=== PATIENT | female | born 1940 | race Caucasian/White ===

== ENCOUNTER 2018-11-24 14:36 | Inpatient (IN) | payer MEDICARE ==
--- NOTE | 2018-10-25 07:16 | NUR ---
REPORTED OFF TO DEXTER, PT STABLE I ROOM, DENIES PAIN AND BLEEDING, STATES SHE WANTS TO EAT AND DRINK.
[~2018-11-24] VITALS: Ht 157.5 cm; Wt 43.6 kg
--- OUTSIDE RECORDS SUMMARY | 2018-11-24 14:38 | XMS REPORT ---
Author Author [facility] Address Unknown Phone Unavailable Care Team Providers Care Commodity Supervisor Name Role Phone Unavailable Unavailable Payers Payer Name Policy Type Policy Number Effective Date Expiration Date Problems This patient has no known problems. Allergies, Adverse Reactions, Alerts Allergy Name Allergy Type Status Severity Reaction(s) Onset Date Inactive Date Treating Clinician Comments No Known Allergies DA Active U 2017-12-29 00:00:00 Medications This patient has no known medications.
[2018-11-24 15:39] LABS: BASOPHILS # (AUTO) 0.1 (0.0-0.1); BASOPHILS % 0.7 % (0.0-1.0); EOSINOPHILS # (AUTO) 0.1 (0.0-0.4); EOSINOPHILS % 1.1 % (0.0-6.0); HEMATOCRIT 24.8 % (34.2-44.1); HEMOGLOBIN 7.5 g/dL (12.0-16.0); LYMPHOCYTES # (AUTO) 1.4 (1.0-3.2); LYMPHOCYTES % 18.5 % (18.0-39.1); MEAN CORPUSCULAR HEMOGLOBIN 29.1 pg (28-32); MEAN CORPUSCULAR HGB CONC 30.2 g/dL (31-35); MEAN CORPUSCULAR VOLUME 96.1 fL (81-99); MONOCYTES # (AUTO) 0.5 (0.2-0.8); NEUTROPHILS # (AUTO) 5.4 (2.1-6.9); NEUTROPHILS % 72.4 % (38.7-80.0); PLATELET COUNT 420 x10e3/uL (140-360); RED BLOOD COUNT 2.58 x10e6/uL (3.6-5.1); RED CELL DISTRIBUTION WIDTH 14.6 % (11.7-14.4)
[2018-11-24 16:01] LABS: ALBUMIN 2.9 g/dL (3.5-5.0); ALBUMIN/GLOBULIN RATIO 1.1 (0.8-2.0); ANION GAP 14.3 mmol/L (8-16); CALCIUM 8.4 mg/dL (8.4-10.2); CREATININE, SERUM 2.17 mg/dL (0.57-1.11); POTASSIUM 4.3 mmol/L (3.5-5.1)
[2018-11-24] MEDS ORDERED: LOSARTAN POTASS50 MG PO (16:12)
[2018-11-24] MEDS ORDERED: PANTOPRAZOLE SO40 MG PO (16:12)
[2018-11-24] MEDS ORDERED: XARELTO15 MG PO (16:12)
[2018-11-24] MEDS ORDERED: METOPROLOL TART50 MG PO (16:12)
[2018-11-24] MEDS ORDERED: TRIAMTERENE-HCTZ1 EA PO (16:12)
[2018-11-24] MEDS ORDERED: MIRTAZAPINE15 MG PO (16:12)
[2018-11-24 16:27] LABS: MAGNESIUM 1.9 MG/DL (1.3-2.1)
[2018-11-24 16:32] LABS: INR 0.92; PROTHROMBIN TIME 13.2 seconds (11.9-14.5)
[2018-11-24 16:33] LABS: PARTIAL THROMBOPLASTIN TIME 24.4 seconds (23.8-35.5)
[2018-11-24 16:35] LABS: CREATINE KINASE MB 2.3 ng/mL (0-5.0)
--- NOTE | 2018-11-24 16:36 | Diagnostic Imaging Report ---
EXAMINATION: CHEST SINGLE (PORTABLE) INDICATION: Fatigue. ^FATIGUE ^[id number] ^[id number] COMPARISON: None FINDINGS: TUBES and LINES: None. LUNGS: Lungs are well inflated. Likely mild scarring/atelectasis at the left lung base. There is no evidence of pneumonia or pulmonary edema. PLEURA: Likely small left pleural effusion. HEART AND MEDIASTINUM: Cardiomegaly. BONES AND SOFT TISSUES: No acute osseous lesion. Soft tissues are unremarkable. UPPER ABDOMEN: No free air under the diaphragm. IMPRESSION: Cardiomegaly with likely small left pleural effusion and mild scarring/atelectasis at the left lung base. Signed by: Dr. Harvey Ochoa M.D. on 11/24/2018 4:32 PM
[2018-11-24] MEDS ORDERED: SODIUM CHLORIDE 0.9% 250ML 250 ML IV ONE (16:45)
--- NOTE | 2018-11-24 17:41 | NUR ---
started first unit PRBC.
[2018-11-24] MEDS ORDERED: IPRATROPIUM BROMIDE 0.02% 2.5 ML NEB NEB PRN (18:15)
[2018-11-24] MEDS ORDERED: PANTOPRAZOLE 40 MG 10ML VIAL IV ONE (18:15)
[2018-11-24] MEDS ORDERED: LEVALBUTEROL HCL SOLN NEBU 0.63 MG/3 ML NEB INH PRN (18:15)
[2018-11-24] MEDS ORDERED: SODIUM CHLORIDE 0.9% 1000ML 1,000 ML IV ONE (18:15)
--- NOTE | 2018-11-24 18:23 | NUR ---
DR. WING IN ED TO SEE PATIENT
--- NOTE | 2018-11-24 19:00 | NUR ---
RECEIVED REPORT FROM LISA WAGNER LVN. PT AWAKE ALERT SKIN W/D RESP NONLAB NAD NOTED. TOLERATING TRANSFUSION WELL
--- NOTE | 2018-11-24 20:04 | NUR ---
1ST UNIT PRBC INFUSED. TOLERATED WELL, AWAKE ALERT SKIN W/D RESP NONLAB. NAD NOTED.
[2018-11-24] MEDS: FUROSEMIDE INJ 10 MG/ML 2 ML VIAL IV PRN (20:18)
[2018-11-24 20:24] LABS: BILIRUBIN,URINE NEGATIVE (NEGATIVE); CLARITY,URINE SL CLOUDY (CLEAR); COLOR,URINE YELLOW (YELLOW); KETONES,URINE NEGATIVE (NEGATIVE); LEUKOCYTE ESTERASE ,URINE NEGATIVE (NEGATIVE); NITRITE,URINE NEGATIVE (NEGATIVE); PROTEIN,URINE DIPSTICK TRACE (NEGATIVE); URINE UROBILINOGEN 0.2 mg/dL (0.2 - 1)
[2018-11-24 20:35] LABS: BACTERIA,URINE MANY /HPF; EPITHELIAL CELLS,URINE MANY /LPF; TRANSITIONAL EPI CELLS,URINE MODERATE
[2018-11-24] MEDS: NIFEDIPINE CR 30 MG TAB PO SCH (20:37)
[2018-11-24 20:47] LABS: CREATININE,URINE RANDOM 93.55 mg/dL (47-110); TOTAL PROTEIN, URINE 27.4 mg/dL (1-14)
--- NOTE | 2018-11-24 20:48 | Consultation ---
DATE OF CONSULTATION: November 24, 2018 REASON FOR CONSULTATION: Acute kidney injury. HISTORY OF PRESENT ILLNESS: A 77-year-old female who was on Xarelto for atrial fibrillation, probable coronary artery disease, followed by Dr. Boateng, came in with bleeding per rectum. Found to have anemia with a hemoglobin 7.5, currently receiving packed RBC transfusion. Currently lying supine, in no apparent distress. Patient is a thin built lady with very poor muscle mass, but delightfully comfortable. No apparent distress. LABS: Show sodium 137, potassium 4.3, bicarbonate 21, creatinine 2.17. Patient denies prior history of any kidney insufficiency or kidney stone disease. ALLERGIES: SHE DENIES ANY DRUG ALLERGIES. PAST MEDICAL HISTORY: Hypertension, atrial fibrillation. MEDICATIONS: Currently received normal saline bolus. On albuterol, ipratropium. He also on metoprolol 50 mg p.o. daily, pantoprazole IV. Receiving packed RBC transfusion. SOCIAL HISTORY: Does not smoke or drink. FAMILY HISTORY: Significant for hypertension. PHYSICAL EXAMINATION GENERAL: Awake, alert, lying supine, no apparent distress. VITALS: Blood pressure 173/83, pulse is 74, afebrile. HEAD AND NECK: Cornea clear. Mucosa moist. Neck veins flat. LUNGS: Relatively clear. No rales or rhonchi. HEART: S1, S2 audible. ABDOMEN: Otherwise soft and nontender. No apparent visceromegaly. EXTREMITIES: Lower extremity examination shows no edema. IMPRESSION AND PLAN 1. Acute kidney failure, etiology multifactorial. 2. Underlying atrial fibrillation. 3. Gastrointestinal bleed. 4. Anemia. GI to be consulted. Receiving packed RBC transfusion. No evidence of fluid overload. We will obtain urinalysis, spot urine protein-creatinine ratio, kidney ultrasound, urine electrolytes. Calculate fraction excretion of sodium. Serum uric acid. Continue IV normal saline once packed RBC is finished. Strict I's and O's. Job#: [id number] RTKarla
--- NOTE | 2018-11-24 22:05 | NUR ---
attempted to call report without success
--- NOTE | 2018-11-24 22:17 | NUR ---
attempted to call report without success
[2018-11-24 23:40] VITALS: BP 170/96
[2018-11-24 23:45] VITALS: BP 170/96
--- NOTE | 2018-11-24 23:45 | NUR ---
RECEIVED PT FROM ER/ KEVIN RN GAVE NURSE REPORT , PT AAOX3, BREATHING EVEN AND UNLABORED, ON ROOM AIR, WITH 2ND UNIT BLOOD TRANSFUSION IN PROGRESS.
[2018-11-25] MEDS: FUROSEMIDE INJ 10 MG/ML 2 ML VIAL IV PRN ×2 (01:50→07:12)
[2018-11-25] MEDS: SODIUM CHLORIDE 0.9% 1000ML 1,000 ML IV SCH ×3 (04:45→21:22)
[2018-11-25 05:26] LABS: BASOPHILS % 0.6 % (0.0-1.0); EOSINOPHILS # (AUTO) 0.2 (0.0-0.4); EOSINOPHILS % 2.6 % (0.0-6.0); HEMATOCRIT 34.3 % (34.2-44.1); HEMOGLOBIN 11.1 g/dL (12.0-16.0); LYMPHOCYTES # (AUTO) 1.6 (1.0-3.2); LYMPHOCYTES % 23.7 % (18.0-39.1); MEAN CORPUSCULAR HEMOGLOBIN 27.9 pg (28-32); MEAN CORPUSCULAR HGB CONC 32.4 g/dL (31-35); MEAN CORPUSCULAR VOLUME 86.2 fL (81-99); MONOCYTES # (AUTO) 0.7 (0.2-0.8); MONOCYTES % 9.9 % (4.4-11.3); NEUTROPHILS # (AUTO) 4.1 (2.1-6.9); NEUTROPHILS % 62.9 % (38.7-80.0); PLATELET COUNT 337 x10e3/uL (140-360); RED BLOOD COUNT 3.98 x10e6/uL (3.6-5.1); RED CELL DISTRIBUTION WIDTH 16.5 % (11.7-14.4)
[2018-11-25 05:45] LABS: ALBUMIN 3.1 g/dL (3.5-5.0); ALBUMIN/GLOBULIN RATIO 1.1 (0.8-2.0); CALCIUM 8.7 mg/dL (8.4-10.2); CREATININE, SERUM 2.07 mg/dL (0.57-1.11)
[2018-11-25 06:05] LABS: CREATINE KINASE MB 3.2 ng/mL (0-5.0)
[2018-11-25 07:15] VITALS: BP 160/83
[2018-11-25] MEDS: METOPROLOL TARTRATE 50 MG TAB PO SCH ×2 (08:36→17:34)
[2018-11-25] MEDS: PANTOPRAZOLE 40 MG 10ML VIAL IV SCH ×2 (08:36→17:33)
--- NOTE | 2018-11-25 08:36 | Progress Note ---
DATE: November 25, 2018 SUBJECTIVE: Getting hungry. Thinks the bleeding is better. OBJECTIVE VITAL SIGNS: Temperature 98.4, pulse 78, blood pressure 160/83. CHEST: Clear. EXTREMITIES: No edema. SKIN: Decreased turgor. LABS: Hemoglobin is up to 11.1. Chemistries show relatively stable creatinine of 2.07, serum CO2 of 22, she does not think that CKD has been mentioned in her past by Dr. Duran. The UA was showing evidence of UTI with proteinuria about 300 mg or so. Ultrasound is pending. Otherwise, no casts were reported. ASSESSMENT 1. Probably chronic kidney disease, stage 3 to 4 and volume depletion. 2. If there is any acute injury, we need to check the old records to see what her baseline was, although I suspect she is quite close to it. 3. Suspected cause of chronic kidney disease is hypertension and nephrosclerosis. PLAN: Continue current medications. Cut down IV fluids to 50 mL an hour. Increase the metoprolol to 50 mg twice a day. We will follow along. Job#: [id number] GENE
[2018-11-25] MEDS ORDERED: METOPROLOL TARTRATE 50 MG TAB PO SCH (09:00)
[2018-11-25 10:01] LABS: BASOPHILS # (AUTO) 0.1 (0.0-0.1); BASOPHILS % 0.7 % (0.0-1.0); EOSINOPHILS # (AUTO) 0.1 (0.0-0.4); EOSINOPHILS % 1.6 % (0.0-6.0); HEMATOCRIT 34.8 % (34.2-44.1); HEMOGLOBIN 11.4 g/dL (12.0-16.0); LYMPHOCYTES # (AUTO) 1.1 (1.0-3.2); MEAN CORPUSCULAR HGB CONC 32.8 g/dL (31-35); MEAN CORPUSCULAR VOLUME 85.5 fL (81-99); MONOCYTES # (AUTO) 0.7 (0.2-0.8); MONOCYTES % 9.7 % (4.4-11.3); NEUTROPHILS # (AUTO) 4.7 (2.1-6.9); NEUTROPHILS % 70.6 % (38.7-80.0); PLATELET COUNT 347 x10e3/uL (140-360); RED BLOOD COUNT 4.07 x10e6/uL (3.6-5.1); RED CELL DISTRIBUTION WIDTH 16.7 % (11.7-14.4)
[2018-11-25 10:21] LABS: CREATINE KINASE MB 2.9 ng/mL (0-5.0)
--- NOTE | 2018-11-25 11:28 | Consultation ---
DATE OF CONSULTATION: November 25, 2018 HPI: This is a 77-year-old who has a history of renal disease, history of atrial fibrillation, history of coronary artery disease, presented to the hospital because of problems with rectal bleeding that happened about a week or so ago. The patient was on Xarelto as he apparently bumped the Xarelto a week ago and the bleeding resolved. She is currently comfortable. On admission, her hemoglobin was 7.5 and she received 2 unit of bright red blood cells and it has been up to 11. She also has an elevated troponin of 1.472. MEDICAL PROBLEMS: Significant for history of renal disease, and also history of atrial fibrillation, and history of hypertension. ALLERGIES: NONE. SOCIAL HISTORY: No alcohol use. FAMILY HISTORY: Noncontributory. REVIEW OF SYSTEMS: At this point, she denies any chest pain. Denies any shortness of breath. Denies any dysphagia or odynophagia. Denies any dysuria, hematuria, or any kind of syncopal episode. She apparently had colonoscopy in April, which was supposedly "normal." PHYSICAL EXAMINATION GENERAL: Awake, alert, appears to be stable, not in acute distress at this point. VITAL SIGNS: Afebrile currently. HEAD, EYES, EARS, NOSE, AND THROAT: Normocephalic and atraumatic. Sclerae are anicteric. NECK: Supple. HEART: Sounds regular. LUNGS: Clear. ABDOMEN: Soft. There is no distention at this point. It is nontender. EXTREMITIES: No cyanosis. No clubbing. LAB VALUES: This morning BUN of 31, creatinine of 2.07, and troponin down to 0.720. Hemoglobin is up to 11.1 after blood transfusions. PT/INR is normal. IMPRESSION 1. Gastrointestinal bleed, painless. Suspect possible diverticular bleeding. At this point, she is not bleeding any more. 2. History of atrial fibrillation. 3. History of hypertension. 4. History of renal insufficiency. RECOMMENDATIONS: Continue current care at this point. Follow up labs and transfuse as needed. Cardiac evaluations. Job#: [id number] TESHA cc:DR. EWA ZAFAR
[2018-11-25 12:20] VITALS: BP 115/81
--- NOTE | 2018-11-25 14:10 | NUR ---
Nutrition Intervention Note RD Recommendation(s) for Physician: Consider a regular diet to promote PO intake Plan of Care: RD following, monitoring for tolerance and adequacy Nutrition reason for involvement: MD Consult RD Assessment Initial encounter with patient. Pt states that she had a UBW of 120# and has been losing wt over the last 4-5 years due to a poor appetite intake. Loss of lean body mass, loss of subcutaneous fat, prominent clavicle, hollow orbitals, temporal wasting, no change of functional status, pt is dentate and denies any difficulty chewing or swallowing. Pt is willing to take strawberry Ensure Enlive Principal Problems/Diagnoses: anemia, atrial fibrillation, GIB PMH: CKD stage 3-4, HTN IVF: NS at 50ml/h GI: Denies N,V,D Skin: Intact Labs: (11/25/2018) lab results reviewed Meds: (11/25/2018) MAR reviewed 1090 - 1309 kcals at 25-30 kcals/kg/bw 43-65 at 1-1.5 g/kg/bw fluid needs per fluid status Malnutrition Evaluation (11/25/2018) The patient meets criteria for unspecified SEVERE protein-calorie malnutrition. Energy intake: <75% of estimated energy requirements for >3 months Weight loss: >10% in 6 months (Chronic) Fat loss: Severe Muscle loss: Severe Supporting Evidence: Fluid accumulation:none Functional Status: no changes Diet Education Needs Assessment: Diet education not indicated. Ht:62 Wt:96.06lbs BMI:17.6kg/m2 IBW:110lbs Nutrition Prescription (Diet Order):Renal Food Allergies: no known food allergies. Diet Adequacy: Meeting calorie needs, Meeting protein needs, Meeting fluid needs Tolerance: Tolerating PO Nutrition Care Level: Moderate Nutrition Diagnosis: Malnutrition related to chronic illness as evidenced by a BMI of 17.6 Goal:Patient will meet 75-100% of estimated needs by follow up Progress: Progressing Interventions: General healthful diet, Commercial beverage Monitoring/Evaluation: Total energy intake, Total protein intake, IVF, Liquid supplement, Weight change. Edson Momin RD, LD, CNSC
--- NOTE | 2018-11-25 14:39 | Diagnostic Imaging Report ---
EXAM: Renal Ultrasound INDICATION: ABIEL. COMPARISON: None TECHNIQUE: Transverse and longitudinal images of the kidneys and bladder were obtained. FINDINGS: Right Kidney: Length: Measures 7.6 x 3.5 x 3.7 cm Appearance: Normal echogenicity. Collecting system: No hydronephrosis Stones: None Cyst/Mass: None Left Kidney: Length: Measures 8.0 x 4.5 x 3.4 cm Appearance: Normal echogenicity. Collecting system: No hydronephrosis Stones: None Cyst/Mass: No evidence of solid mass. A simple appearing anechoic cyst is noted in the inferior pole measuring up to 1.7 cm. Bladder: Unremarkable in appearance. Bilateral ureteral jets are noted. IMPRESSION: No acute sonographic abnormality. No evidence of hydronephrosis. Simple appearing left lower pole renal cyst. Signed by: Dr. Magali Kelly MD on 11/25/2018 2:36 PM
--- NOTE | 2018-11-25 15:45 | Consultation ---
DATE OF CONSULTATION: November 25, 2018 CARDIOLOGY CONSULTATION ATTENDING PHYSICIAN: Dr. Mulugeta Duran. Thank you so much for asking us to see this nice lady again in consultation. Ms. Lambert is a complex and elderly 77-year-old woman who is sent to the emergency room from Dr. Duran's office with a complaint of bright red blood per rectum. HISTORY OF PRESENT ILLNESS: Patient reports that several days ago, she noted some bright red blood per rectum and was instructed by Dr. Duran to stop her anticoagulant, Xarelto and head to the emergency room, which she did not do so because she found the hospital was full and returned later. PAST MEDICAL HISTORY: Complex with chronic atrial fibrillation. She has also hypertension, COPD, chronic mild renal insufficiency with creatinine last year being 1.8. She had previous hematochezia in 2018. PAST SURGICAL HISTORY: Includes hysterectomy. HOME MEDICATIONS: Her recent home medications have been metoprolol 50 mg half tablet once a day, vitamin D, Xarelto 15 mg daily, aspirin 81 mg daily, triamterene/hydrochlorothiazide 37.5/25 half tablet daily, pravastatin 20 mg daily, losartan 50 mg daily, mirtazapine 15 mg daily, amlodipine 5 mg twice a day. PERSONAL AND SOCIAL HISTORY: Patient has continued to smoke until her presentation here. FAMILY HISTORY: Father of ME at age 60. Mother had breast cancer and lung cancer, at age 57. REVIEW OF SYSTEMS GENERAL: Patient reports she thinks she has lost some weight, she reports perhaps as much as 15 pounds from the last year. CARDIAC: Patient has had some dyspnea on exertion and had discussed with Dr. Boateng possibility of cardiac catheterization last year, but was never scheduled. PHYSICAL EXAMINATION GENERAL: At this time shows thin slight woman, who is alert and responsive, seems forgetful. VITAL SIGNS: Blood pressure is 160/80, pulse is 80 and irregular. HEENT: Otherwise unremarkable. NECK: No jugular venous distention. THORAX: Heart sounds S1 and S2 are equal, but irregularly irregular with no retained murmur. LUNGS: Relatively clear. ABDOMEN: Scaphoid. Normal bowel sounds. Nontender. No mass or organomegaly palpable. EXTREMITIES: No cyanosis, clubbing, or edema. Thin. LABS: Her presenting hemoglobin was 7.5 and after transfusion 11.4. Creatinine 2.0. ASSESSMENT 1. Gastrointestinal bleeding. 2. Chronic atrial fibrillation. 3. Weight loss, our records indicate probably 9 pounds since August 2018 and she thinks maybe 15 pounds over the past year. 4. Renal insufficiency, previous creatinine was 1.8 last year. 5. Abnormal troponins of 1.4, 0.72, and 0.53; however, CK and CK-MBs are all normal. 6. Chronic obstructive pulmonary disease/tobacco abuse. PLAN: Agree with withholding anticoagulation. We will await GI studies and follow her closely with you. Thank your for asking me to see her in consultation. Job#: [id number] NELLIE cc:MD AMISHA BELL MD VIPUL PATEL, MD
--- NOTE | 2018-11-25 16:22 | History and Physical ---
CHIEF COMPLAINT: 1. Rectal bleeding. 2. Dizziness. 3. Weakness. HISTORY OF PRESENT ILLNESS: This is a 77-year-old female with a past medical history of atrial fibrillation, chronic kidney disease, hypertension, COPD, who was in her usual state of health. The patient has rectal bleeding, went to see Dr. Maude Duran in his office and found to have hemoglobin and hematocrit was very low. The patient was sent to ER. In the ER, the patient got 2 units of blood. H and H is stable now. No chest pain. No headache. No dizziness. Mild shortness of breath. No abdominal pain. No nausea or vomiting. No hematemesis. No leg pain. No leg swelling. No seizures. No focal weakness. ALLERGIES: NO KNOWN DRUG ALLERGY. PAST MEDICAL HISTORY 1. COPD. 2. Hypertension. 3. Atrial fibrillation. 4. Chronic kidney disease. 5. Pulmonary hypertension. PAST SURGICAL HISTORY 1. History of hysterectomy. 2. D and C. FAMILY HISTORY: Father had NM, at 60. Mother had breast cancer, lung CA and NM, at age 57. Sibling, half brother unknown. SOCIAL HISTORY: The patient lives with daughter in [place]. HABITS: Smoking cigarette half pack to one pack per day. Drink wine occasionally. Denies illicit drug use. MEDICATION: List attached. REVIEW OF SYSTEMS GENERAL: Generalized fatigue and weakness. HEENT: No diplopia, no blurring of vision. CARDIOPULMONARY: No chest pain, has some shortness of breath. ALIMENTARY SYSTEM: No nausea or vomiting, has bleeding per rectum. No abdominal pain. GENITOURINARY SYSTEM: No dysuria, no hematuria. MUSCULOSKELETAL SYSTEM: No joint pain. CENTRAL NERVOUS SYSTEM: No focal weakness. PHYSICAL EXAMINATION GENERAL: This is a 77-year-old female, who is alert and oriented x3. No gross deficits. VITAL SIGNS: Temperature 98.4, pulse is 78, respiratory rate 17, and blood pressure 160/83. HEENT: Head atraumatic, normocephalic. Pupils are bilaterally equal and reactive to light. Extraocular muscles intact. Tongue is dry. Sclerae normal. Conjunctivae are pale. NECK: Supple. No JVD, no carotid bruit. SKIN: Dry. LUNGS: Clear to auscultation and percussion. Decreased breath sounds. No wheezing. No rhonchi. HEART: No S3, no S4. No murmur. ABDOMEN: Soft and nontender. No guarding. No rigidity. EXTREMITIES: No pedal edema. Peripheral pulses +1. ANESTHESIOLOGIST AND CRITICAL CARE: Grossly nonfocal. LABORATORY DATA: Urine normal. Chemistry; sodium 137, potassium 4.3, BUN 27, creatinine 2.17. Sugar 97. White count 7.47, hemoglobin 7.5, hematocrit 24.8, platelet is 420. PT/PTT normal. RADIOGRAPH: Chest x-ray, cardiomegaly with likely small left pleural effusion and mild scarring. Ultrasound of kidney normal. ASSESSMENT 1. Gastrointestinal bleeding, rule out upper versus lower gastrointestinal bleeding. 2. Anemia status post 2 units of blood. Symptomatic anemia. The patient need admission. 3. Atrial fibrillation. 4. Hypertension. 5. Chronic obstructive pulmonary disease. 6. Chronic kidney disease. 7. Possible diabetes mellitus type 2. PLAN: Admit patient to telemetry. Cardiology consult with Dr. Mcdonough. GI consult with . Monitor lab. IV fluid normal saline 50 mL per hour, Protonix 40 mg IV b.i.d. Stop Xarelto. Lab in the morning. Case discussed with patient and nursing staff. Condition prognosis explained. Job#: [id number] TESHA
[2018-11-25 17:46] LABS: BASOPHILS % 0.7 % (0.0-1.0); EOSINOPHILS # (AUTO) 0.1 (0.0-0.4); EOSINOPHILS % 1.9 % (0.0-6.0); HEMATOCRIT 33.9 % (34.2-44.1); HEMOGLOBIN 11.1 g/dL (12.0-16.0); LYMPHOCYTES # (AUTO) 1.1 (1.0-3.2); LYMPHOCYTES % 18.2 % (18.0-39.1); MEAN CORPUSCULAR HEMOGLOBIN 28.1 pg (28-32); MEAN CORPUSCULAR HGB CONC 32.7 g/dL (31-35); MEAN CORPUSCULAR VOLUME 85.8 fL (81-99); MONOCYTES # (AUTO) 0.6 (0.2-0.8); MONOCYTES % 9.8 % (4.4-11.3); NEUTROPHILS % 69.1 % (38.7-80.0); PLATELET COUNT 337 x10e3/uL (140-360); RED BLOOD COUNT 3.95 x10e6/uL (3.6-5.1); RED CELL DISTRIBUTION WIDTH 16.8 % (11.7-14.4)
[2018-11-25 19:29] VITALS: BP 119/73
[2018-11-25 22:28] VITALS: BP 129/68
[2018-11-25] MEDS: NIFEDIPINE CR 30 MG TAB PO SCH (22:32)
[2018-11-26] VITALS (9 sets, daily range): BP systolic 113–150; BP diastolic 60–99
[2018-11-26 04:55] LABS: BASOPHILS % 0.5 % (0.0-1.0); EOSINOPHILS # (AUTO) 0.2 (0.0-0.4); HEMATOCRIT 30.8 % (34.2-44.1); LYMPHOCYTES # (AUTO) 1.4 (1.0-3.2); LYMPHOCYTES % 24.1 % (18.0-39.1); MEAN CORPUSCULAR HEMOGLOBIN 28.1 pg (28-32); MEAN CORPUSCULAR HGB CONC 32.5 g/dL (31-35); MEAN CORPUSCULAR VOLUME 86.5 fL (81-99); MONOCYTES # (AUTO) 0.5 (0.2-0.8); MONOCYTES % 9.3 % (4.4-11.3); NEUTROPHILS # (AUTO) 3.6 (2.1-6.9); NEUTROPHILS % 62.9 % (38.7-80.0); PLATELET COUNT 305 x10e3/uL (140-360); RED BLOOD COUNT 3.56 x10e6/uL (3.6-5.1); RED CELL DISTRIBUTION WIDTH 16.3 % (11.7-14.4)
[2018-11-26 05:16] LABS: ANION GAP 12.8 mmol/L (8-16); CALCIUM 7.8 mg/dL (8.4-10.2); CREATININE, SERUM 1.85 mg/dL (0.57-1.11)
[2018-11-26 05:17] LABS: POTASSIUM 2.8 mmol/L (3.5-5.1)
[2018-11-26] MEDS ORDERED: POTASSIUM CHLORIDE 20 MEQ TAB CR PO STA (06:43)
[2018-11-26] MEDS: PANTOPRAZOLE 40 MG 10ML VIAL IV SCH ×2 (07:08→09:48)
[2018-11-26] MEDS ORDERED: PEG (High)/E-LYTE SOLN 4,000 ML BTL PO NR (08:30)
[2018-11-26] MEDS ORDERED: BISACODYL 5 MG TAB EC PO NR ×2 (08:30→16:15)
[2018-11-26] MEDS: METOPROLOL TARTRATE 50 MG TAB PO SCH ×2 (09:48→16:29)
[2018-11-26 11:55] LABS: BASOPHILS % 0.3 % (0.0-1.0); EOSINOPHILS # (AUTO) 0.1 (0.0-0.4); EOSINOPHILS % 2.1 % (0.0-6.0); HEMATOCRIT 33.9 % (34.2-44.1); HEMOGLOBIN 10.8 g/dL (12.0-16.0); LYMPHOCYTES # (AUTO) 1.1 (1.0-3.2); LYMPHOCYTES % 16.2 % (18.0-39.1); MEAN CORPUSCULAR HEMOGLOBIN 28.3 pg (28-32); MEAN CORPUSCULAR HGB CONC 31.9 g/dL (31-35); MONOCYTES # (AUTO) 0.6 (0.2-0.8); MONOCYTES % 8.6 % (4.4-11.3); NEUTROPHILS # (AUTO) 4.9 (2.1-6.9); NEUTROPHILS % 72.4 % (38.7-80.0); PLATELET COUNT 343 x10e3/uL (140-360); RED BLOOD COUNT 3.81 x10e6/uL (3.6-5.1); RED CELL DISTRIBUTION WIDTH 16.1 % (11.7-14.4)
--- NOTE | 2018-11-26 13:15 | NUR ---
patient refusing to follow colon prep instructions and needs constant reminder to drink cup provided, will continue to monitor
--- NOTE | 2018-11-26 15:50 | NUR ---
informed dr sánchez patient having bright red rectal bleeding during prep, orders received for H/H Q6, will continue to monitor
[2018-11-26 17:46] LABS: BASOPHILS % 0.4 % (0.0-1.0); EOSINOPHILS # (AUTO) 0.1 (0.0-0.4); HEMATOCRIT 31.1 % (34.2-44.1); HEMOGLOBIN 10.1 g/dL (12.0-16.0); LYMPHOCYTES # (AUTO) 0.9 (1.0-3.2); LYMPHOCYTES % 17.3 % (18.0-39.1); MEAN CORPUSCULAR HEMOGLOBIN 28.5 pg (28-32); MEAN CORPUSCULAR HGB CONC 32.5 g/dL (31-35); MEAN CORPUSCULAR VOLUME 87.9 fL (81-99); MONOCYTES # (AUTO) 0.5 (0.2-0.8); MONOCYTES % 8.4 % (4.4-11.3); NEUTROPHILS # (AUTO) 3.8 (2.1-6.9); NEUTROPHILS % 71.3 % (38.7-80.0); PLATELET COUNT 306 x10e3/uL (140-360); RED BLOOD COUNT 3.54 x10e6/uL (3.6-5.1); RED CELL DISTRIBUTION WIDTH 16.1 % (11.7-14.4)
[2018-11-26] MEDS: SODIUM CHLORIDE 0.9% 1000ML 1,000 ML IV SCH (18:29)
[2018-11-26] MEDS: NIFEDIPINE CR 30 MG TAB PO SCH (20:57)
[2018-11-27] VITALS (11 sets, daily range): BP systolic 110–146; BP diastolic 59–85
--- NOTE | 2018-11-27 00:15 | NUR ---
Assisted patient to use bathroom and bedside commode multiple times ,had a multiple yellow liquid BM. Patient refused to drink bowel prep this time,Patient stated that "Its hurt my abdomen a lot I am not going to drink anymore". Will continue to monitor.
[2018-11-27 00:24] LABS: BASOPHILS % 0.6 % (0.0-1.0); EOSINOPHILS # (AUTO) 0.1 (0.0-0.4); HEMATOCRIT 33.3 % (34.2-44.1); HEMOGLOBIN 10.8 g/dL (12.0-16.0); LYMPHOCYTES # (AUTO) 1.4 (1.0-3.2); LYMPHOCYTES % 20.6 % (18.0-39.1); MEAN CORPUSCULAR HEMOGLOBIN 28.4 pg (28-32); MEAN CORPUSCULAR HGB CONC 32.4 g/dL (31-35); MEAN CORPUSCULAR VOLUME 87.6 fL (81-99); MONOCYTES # (AUTO) 0.6 (0.2-0.8); MONOCYTES % 8.5 % (4.4-11.3); NEUTROPHILS # (AUTO) 4.5 (2.1-6.9)
--- NOTE | 2018-11-27 00:45 | NUR ---
Patient had one time small amount of bright red rectal bleeding during BM. Will continue to monitor.
[2018-11-27 00:53] LABS: PLATELET COUNT 336 x10e3/uL (140-360)
[2018-11-27] MEDS: SODIUM CHLORIDE 0.9% 1000ML 1,000 ML IV SCH (01:09)
[2018-11-27 05:22] LABS: BASOPHILS % 0.6 % (0.0-1.0); EOSINOPHILS # (AUTO) 0.1 (0.0-0.4); EOSINOPHILS % 2.5 % (0.0-6.0); HEMATOCRIT 31.1 % (34.2-44.1); HEMOGLOBIN 9.7 g/dL (12.0-16.0); LYMPHOCYTES # (AUTO) 1.4 (1.0-3.2); LYMPHOCYTES % 27.3 % (18.0-39.1); MEAN CORPUSCULAR HGB CONC 31.2 g/dL (31-35); MEAN CORPUSCULAR VOLUME 89.6 fL (81-99); MONOCYTES # (AUTO) 0.5 (0.2-0.8); MONOCYTES % 10.2 % (4.4-11.3); NEUTROPHILS # (AUTO) 3.1 (2.1-6.9); PLATELET COUNT 298 x10e3/uL (140-360); RED BLOOD COUNT 3.47 x10e6/uL (3.6-5.1); RED CELL DISTRIBUTION WIDTH 15.8 % (11.7-14.4)
[2018-11-27 05:47] LABS: ALANINE AMINOTRANSFERASE < 6 IU/L (0-55); ALBUMIN 2.4 g/dL (3.5-5.0); ALBUMIN/GLOBULIN RATIO 1.1 (0.8-2.0); ALKALINE PHOSPHATASE 47 IU/L (40-150); ANION GAP 12.7 mmol/L (8-16); BLOOD UREA NITROGEN 25 mg/dL (7-26); BUN/CREATININE RATIO 15 (6-25); CARBON DIOXIDE 22 mmol/L (22-29); CHLORIDE 108 mmol/L (98-107); CREATININE, SERUM 1.67 mg/dL (0.57-1.11); EST GLOMERULAR FILTRATION RATE 30 ML/MIN (60-); GLUCOSE 80 mg/dL (74-118); POTASSIUM 3.7 mmol/L (3.5-5.1); SODIUM 139 mmol/L (136-145)
--- NOTE | 2018-11-27 07:17 | NUR ---
Report given to oncoming JENNIFER Weiner,walking round done. No issued noted.
[2018-11-27] MEDS: PANTOPRAZOLE 40 MG 10ML VIAL IV SCH ×2 (10:15→18:41)
[2018-11-27] MEDS: METOPROLOL TARTRATE 50 MG TAB PO SCH ×2 (10:15→18:56)
[2018-11-27 12:15] LABS: BASOPHILS % 0.3 % (0.0-1.0); EOSINOPHILS # (AUTO) 0.1 (0.0-0.4); HEMATOCRIT 35.6 % (34.2-44.1); HEMOGLOBIN 11.3 g/dL (12.0-16.0); LYMPHOCYTES # (AUTO) 0.9 (1.0-3.2); LYMPHOCYTES % 8.9 % (18.0-39.1); MEAN CORPUSCULAR HEMOGLOBIN 28.6 pg (28-32); MEAN CORPUSCULAR HGB CONC 31.7 g/dL (31-35); MEAN CORPUSCULAR VOLUME 90.1 fL (81-99); MONOCYTES # (AUTO) 0.4 (0.2-0.8); MONOCYTES % 3.4 % (4.4-11.3); NEUTROPHILS % 85.9 % (38.7-80.0); PLATELET COUNT 361 x10e3/uL (140-360); RED BLOOD COUNT 3.95 x10e6/uL (3.6-5.1); RED CELL DISTRIBUTION WIDTH 15.7 % (11.7-14.4)
[2018-11-27] MEDS ORDERED: PROPOFOL IV EMULSION 10 MG/ML 20 ML VIAL ONE (18:27)
[2018-11-27] MEDS ORDERED: LIDOCAINE HCL 2% LOCAL INJ 5 ML SDV VIAL INJ ONE (18:27)
[2018-11-27 18:36] LABS: BASOPHILS % 0.2 % (0.0-1.0); EOSINOPHILS # (AUTO) 0.1 (0.0-0.4); HEMATOCRIT 31.3 % (34.2-44.1); HEMOGLOBIN 9.9 g/dL (12.0-16.0); LYMPHOCYTES # (AUTO) 0.8 (1.0-3.2); LYMPHOCYTES % 9.7 % (18.0-39.1); MEAN CORPUSCULAR HEMOGLOBIN 28.6 pg (28-32); MEAN CORPUSCULAR HGB CONC 31.6 g/dL (31-35); MEAN CORPUSCULAR VOLUME 90.5 fL (81-99); MONOCYTES # (AUTO) 0.4 (0.2-0.8); MONOCYTES % 4.4 % (4.4-11.3); NEUTROPHILS # (AUTO) 7.1 (2.1-6.9); NEUTROPHILS % 84.3 % (38.7-80.0); PLATELET COUNT 299 x10e3/uL (140-360); RED BLOOD COUNT 3.46 x10e6/uL (3.6-5.1); RED CELL DISTRIBUTION WIDTH 15.7 % (11.7-14.4)
--- NOTE | 2018-11-27 19:30 | NUR ---
pt received. pt assessed. no ss of distress noted. no co pain at time. bedside monitor in place. will cont to follow poc. call bunn within reach.
--- NOTE | 2018-11-27 20:34 | NUR ---
pt to transfer to 101. report given to nurse.
[2018-11-27] MEDS: NIFEDIPINE CR 30 MG TAB PO SCH (20:53)
--- NOTE | 2018-11-27 20:57 | NUR ---
pt transferred to 101 via bed. all belongings sent with pt. tele box placed per orders. no ss of distress noted upon transfer.
--- NOTE | 2018-11-27 20:58 | NUR ---
PT ARRIVED TO ROOM VIA BED, REPORT RECEIVED, IV HOOKED UP, ORIENTED TO ROOM, NO DISTRESS NOTED, VS STABLE, CALL LIGHT IN REACH
[2018-11-28 04:00] VITALS: BP 137/72
--- NOTE | 2018-11-28 04:00 | NUR ---
PT IN BED, NO DISTRESS NOTED, LABS DRAWN, TELE ON PT, CALL LIGHT IN REACH, IV INFUSING,
[2018-11-28 06:12] LABS: BASOPHILS % 0.7 % (0.0-1.0); EOSINOPHILS # (AUTO) 0.1 (0.0-0.4); EOSINOPHILS % 2.2 % (0.0-6.0); HEMATOCRIT 32.1 % (34.2-44.1); LYMPHOCYTES # (AUTO) 1.3 (1.0-3.2); LYMPHOCYTES % 21.3 % (18.0-39.1); MEAN CORPUSCULAR HEMOGLOBIN 28.4 pg (28-32); MEAN CORPUSCULAR HGB CONC 31.2 g/dL (31-35); MEAN CORPUSCULAR VOLUME 91.2 fL (81-99); MONOCYTES # (AUTO) 0.4 (0.2-0.8); MONOCYTES % 7.5 % (4.4-11.3); PLATELET COUNT 278 x10e3/uL (140-360); RED BLOOD COUNT 3.52 x10e6/uL (3.6-5.1); RED CELL DISTRIBUTION WIDTH 15.8 % (11.7-14.4)
[2018-11-28 06:25] LABS: POTASSIUM 3.2 mmol/L (3.5-5.1)
[2018-11-28 06:39] LABS: ALBUMIN 2.3 g/dL (3.5-5.0); ANION GAP 11.2 mmol/L (8-16); CREATININE, SERUM 1.42 mg/dL (0.57-1.11)
[2018-11-28 08:26] VITALS: BP_SYST 133; BP_SYST 147; BP_DIAS 71; BP_DIAS 79
[2018-11-28] MEDS: PANTOPRAZOLE 40 MG 10ML VIAL IV SCH (09:26)
[2018-11-28] MEDS: METOPROLOL TARTRATE 50 MG TAB PO SCH (09:26)
[2018-11-28] MEDS: SODIUM CHLORIDE 0.9% 1000ML 1,000 ML IV SCH (09:26)
[2018-11-28 09:50] VITALS: BP 147/79
[2018-11-28 09:52] VITALS: BP 147/79
--- NOTE | 2018-11-28 09:59 | NUR ---
MD NUGENT INTO SEE PT, DISCUSSED POC
[2018-11-28] MEDS ORDERED: POTASSIUM CHLORIDE 20MEQ/100ML 200 ML IV ONE (10:00)
--- NOTE | 2018-11-28 12:43 | NUR ---
SOCIAL WORK INITIAL ASSESSMENT Stuffing Machine Operator to bedside to discuss plan of care with patient/family. CM/SW role and care transitions discussed. Anticipated discharge plan discussed along with duration of care. CM/SW discussed patients right to make decisions in care. CM/SW work hours given. Patient lives: IN UPSTAIRS APARTMENT WITH DAUGHTER Admit/Transfer: VIA ED POA/Emergency contact: FRIEND THAT IS PICKING HER UP IS EROS [phone] Current/Previous Home Health: NONE PCP/Follow-up Care: Isaac ZAFAR Current/Previous DME: NONE Other Services: NONE Employment Status: RETIRED Areas of Concerns: NONE Referral Needs: NONE Education Needs: NONE IMM/SALMERON given and signed (if applicable): NA Goal for discharge: RETURN HOME CM/SW left business card at the bedside with contact information. Name and number was also written on the patients whiteboard. Patient verbalized understanding of discussion. CM will follow-up with ongoing discharge and transition of care needs.
--- NOTE | 2018-11-28 12:45 | NUR ---
DISCUSSED IN ROUNDS POSSIBLE GO HOME TODAY. EDUCATED ABOUT IMM, SIGNED, FILED IN CHART, WITH COPY LEFT WITH FAMILY AT BEDSIDE.
[2018-11-28] MEDS ORDERED: POTASSIUM CHLORIDE 20 MEQ TAB CR PO ONE (12:50)
[2018-11-28] MEDS ORDERED: PANTOPRAZOLE SO40 MG PO (13:01)
[2018-11-28] MEDS ORDERED: FOLIC ACID1 MG PO (13:02)
[2018-11-28] MEDS ORDERED: FEROSUL325 MG PO (13:03)
--- NOTE | 2018-11-28 13:30 | NUR ---
DISCHARGE INSTRUCTIONS REVIEWED WITH PT, VERBALIZED UNDERSTANDING, PT AWAITING RIDE, STATES SHE ALREADY CALLED FAMILY
--- NOTE | 2018-11-28 14:05 | NUR ---
PT AMBULATING WITH PHYSICAL THERAPY
--- NOTE | 2018-11-28 15:47 | NUR ---
PT D/C FROM FACILITY AT THIS TIME, VIA WHEELCHAIR WITH ONE ASSIST. ACCOMPANIED BY FAMILY FRIEND. DISCHARGE INSTRUCTION VERBALIZED TO PT, PACKAGE PROVIDED TO PT. IN STABLE CONDITION, VS WNL. NO C/O PAIN AT THIS TIME.
--- NOTE | 2018-11-28 16:59 | Discharge Summary ---
She is a 77-year-old female patient who presented to the hospital with the complaint of rectal bleeding. ADMITTING IMPRESSION/DIAGNOSES 1. Rectal bleeding. 2. Severe anemia. The patient is on anticoagulation of Xarelto. 3. Chronic kidney disease. 4. Chronic atrial fibrillation. 5. Renal insufficiency. 6. The patient had a high troponin. 7. Chronic obstructive pulmonary disease. 8. The patient is currently an active smoker. 9. Pulmonary hypertension. HOSPITAL COURSE: The patient was admitted with the above diagnoses. The patient's anticoagulation had stopped. The patient was given blood transfusions. The patient had a GI evaluation by Dr. Mahan. The patient had upper and lower endoscopy done. The patient had cardiology and renal consult. The patient had an echo done in 2019 that showed an EF of 50% to 55% and CHF. The patient had gastritis, hiatal hernia and internal hemorrhoids, rectal polyps. The patient did not have any further bleeding episodes. The patient will be discharged home. The patient will resume her Xarelto. The patient will be on folic acid and iron tablet. The patient will have a biopsy. Report pending on the polyps. EWA ZAFAR MD Job#: [id number] DE
[2018-11-28] MEDS ORDERED: SODIUM BICARBONATE 650 MG TAB PO SCH (17:00)
== END 2018-11-28 15:55 | disposition home or self-care (01) | DRG 391 ==
LOC: ER 14:36 → ERHOLD 19:58 → IMCU 22:41 → MED/SURG 11-27 20:58
PROVIDERS: ADMIT Internal Medicine; ATTEND Internal Medicine
PROC: 30233N1 Transfusion of Nonautologous Red Blood Cells into Peripheral Vein, Percutaneous Approach (ICD-10-PCS; 2018-11-24)
PROC: 0DB98ZX Excision of Duodenum, Via Natural or Artificial Opening Endoscopic, Diagnostic (ICD-10-PCS; 2018-11-27)
PROC: 0DB78ZX Excision of Stomach, Pylorus, Via Natural or Artificial Opening Endoscopic, Diagnostic (ICD-10-PCS; 2018-11-27)
PROC: 0DBP8ZX Excision of Rectum, Via Natural or Artificial Opening Endoscopic, Diagnostic (ICD-10-PCS; principal; 2018-11-27 08:16)
PROC: 0DBL8ZX Excision of Transverse Colon, Via Natural or Artificial Opening Endoscopic, Diagnostic (ICD-10-PCS; 2018-11-27 08:16)
DX: K29.70 Gastritis, unspecified, without bleeding (principal); N17.0 Acute kidney failure with tubular necrosis; D62 Acute posthemorrhagic anemia; N17.9 Acute kidney failure, unspecified; N18.4 Chronic kidney disease, stage 4 (severe); N39.0 Urinary tract infection, site not specified; Z68.1 Body mass index [BMI] 19.9 or less, adult; I13.0 Hypertensive heart and chronic kidney disease with heart failure and stage 1 through stage 4 chronic kidney disease, or unspecified chronic kidney disease; Z79.01 Long term (current) use of anticoagulants; E11.22 Type 2 diabetes mellitus with diabetic chronic kidney disease; J44.9 Chronic obstructive pulmonary disease, unspecified; I48.2 Chronic atrial fibrillation; Z72.0 Tobacco use; R63.4 Abnormal weight loss; K57.30 Diverticulosis of large intestine without perforation or abscess without bleeding; K63.5 Polyp of colon; K62.1 Rectal polyp; K64.8 Other hemorrhoids; K44.9 Diaphragmatic hernia without obstruction or gangrene; D12.7 Benign neoplasm of rectosigmoid junction; Z80.3 Family history of malignant neoplasm of breast; Z80.1 Family history of malignant neoplasm of trachea, bronchus and lung; Z82.49 Family history of ischemic heart disease and other diseases of the circulatory system; I27.20 Pulmonary hypertension, unspecified; I50.9 Heart failure, unspecified
CPT/HCPCS: 36415; 43239; 45380; 71045; 76770; 80048; 80053; 81001; 82550; 82553; 82570; 83735; 84156; 84484; 84550; 85014; 85025; 85610; 85730; 86850; 86900; 86920; 88305; 88312; 93005; 93306; 96361; 97139; 99284; J1940; J2001; J3480; J7030; J7050; P9016

== ENCOUNTER 2019-06-08 12:25 | Inpatient (IN) | payer MEDICARE ==
[~2019-06-08] VITALS: Ht 157.5 cm; Wt 43.5 kg
[~2019-06-08 12:25] MED LIST: FEROSUL325 MG PO; FOLIC ACID1 MG PO; LOSARTAN POTASS50 MG PO; METOPROLOL TART50 MG PO; MIRTAZAPINE15 MG PO; PANTOPRAZOLE SO40 MG PO; TRIAMTERENE-HCTZ1 EA PO; XARELTO15 MG PO
--- NOTE | 2019-06-08 13:25 | NUR ---
RECEIVED PT VIA WC, C/O SOB WITH EXERTION. PLACED ON O2 2LPM VIA NC FOR O2 SAT OF 80% ON RA. ORIENTED TO ROOM AND USE OF CALL LIGHT. CALL LIGHT PLACED, WITHIN REACH. TELEMETRY APPLIED.
[2019-06-08 14:02] VITALS: BP 146/67
[2019-06-08] MEDS ORDERED: SODIUM CHLORIDE 0.9% 250ML 250 ML IV ONE (14:15)
[2019-06-08] MEDS ORDERED: METOPROLOL TART25 MG PO (14:25)
[2019-06-08] MEDS ORDERED: LASIX20 MG PO (14:26)
[2019-06-08] MEDS ORDERED: MEGESTROL ACETA40 MG PO (14:26)
[2019-06-08] MEDS ORDERED: LISINOPRIL10 MG PO (14:26)
[2019-06-08] MEDS ORDERED: LOSARTAN POTAS100 MG (14:27)
[2019-06-08] MEDS ORDERED: LOSARTAN POTAS100 MG PO (14:29)
[2019-06-08 14:45] VITALS: BP 146/67
[2019-06-08 14:45] LABS: BASOPHILS % 0.3 % (0.0-1.0); EOSINOPHILS % 0.5 % (0.0-6.0); LYMPHOCYTES # (AUTO) 0.7 (1.0-3.2); LYMPHOCYTES % 11.6 % (18.0-39.1); MEAN CORPUSCULAR HEMOGLOBIN 23.1 pg (28-32); MEAN CORPUSCULAR HGB CONC 27.5 g/dL (31-35); MEAN CORPUSCULAR VOLUME 84.3 fL (81-99); MONOCYTES # (AUTO) 0.5 (0.2-0.8); MONOCYTES % 8.5 % (4.4-11.3); NEUTROPHILS # (AUTO) 4.8 (2.1-6.9); NEUTROPHILS % 78.6 % (38.7-80.0); PLATELET COUNT 382 x10e3/uL (140-360); RED BLOOD COUNT 2.42 x10e6/uL (3.6-5.1); RED CELL DISTRIBUTION WIDTH 16.8 % (11.7-14.4)
[2019-06-08 14:50] LABS: HEMATOCRIT 20.4 % (34.2-44.1); HEMOGLOBIN 5.6 g/dL (12.0-16.0)
[2019-06-08] MEDS ORDERED: MEGESTROL ACETATE 40 MG TAB PO SCH (15:00)
[2019-06-08 15:04] LABS: ALBUMIN 2.7 g/dL (3.5-5.0); ALBUMIN/GLOBULIN RATIO 1.1 (0.8-2.0); ANION GAP 13.1 mmol/L (8-16); CALCIUM 8.6 mg/dL (8.4-10.2); CREATININE, SERUM 1.83 mg/dL (0.57-1.11)
--- NOTE | 2019-06-08 15:04 | NUR ---
REPORTED HGB OF 5.6 TO , NEW ORDERS FOR 2 UNITS OF PRBCs TO GIVE.
[2019-06-08 15:06] LABS: POTASSIUM 5.1 mmol/L (3.5-5.1)
[2019-06-08 15:11] VITALS: BP 146/67
[2019-06-08 15:17] LABS: ERYTHROCYTE SEDIMENTATION RATE 17 mm/hr (0-20)
[2019-06-08 15:24] LABS: THYROID STIMULATING HORMONE 27.236 uIU/mL (0.350-4.940)
[2019-06-08 16:02] LABS: INR 1.93; PROTHROMBIN TIME 22.7 seconds (11.9-14.5)
[2019-06-08 16:03] LABS: PARTIAL THROMBOPLASTIN TIME 31.8 seconds (23.8-35.5)
[2019-06-08 16:05] VITALS: BP 106/88
--- NOTE | 2019-06-08 16:20 | NUR ---
PER RADIOLOGY ROUTINE THORACENTESIS WILL NOT BE DONE UNTIL TUESDAY UNLESS ORDERED STAT. NOTIFIED AND PER KEEP THORACENTESIS ROUTINE PENDING CXR RESULTS. IF NEEDING IT DONE SOONER WILL CHANGE THORACENTESIS TO STAT.
[2019-06-08] MEDS ORDERED: LEVOTHYROXINE SODIUM 50 MCG TAB PO ONE (16:30)
[2019-06-08 16:38] LABS: % IRON SATURATION 7 % (15-50); IRON 29 ug/dL (50-170); TOTAL IRON BINDING CAPACITY 414 ug/dL (261-478); TRANSFERRIN 296 mg/dL (180-382)
[2019-06-08] MEDS: METOPROLOL TARTRATE 25 MG TAB PO SCH (16:40)
[2019-06-08] MEDS: PANTOPRAZOLE SOD 40 MG TABEC PO SCH (16:41)
[2019-06-08] MEDS ORDERED: DIPHENHYDRAMINE HCL INJ 25 MG in SODIUM CHLORIDE 0.9% 50ML 50 ML IV ONE (16:45)
[2019-06-08] MEDS ORDERED: FAMOTIDINE INJ 20 MG in SODIUM CHLORIDE 0.9% 50ML 50 ML IV ONE (16:45)
[2019-06-08] MEDS ORDERED: IRON DEXTRAN INJ 50 MG in SODIUM CHLORIDE 0.9% 100 ML IV ONE (16:45)
[2019-06-08] MEDS ORDERED: PHYTONADIONE 10 MG/ML AMP SQ ONE (16:45)
[2019-06-08] MEDS ORDERED: DEXAMETHASONE PHOS 10MG INJ 20 MG in SODIUM CHLORIDE 0.9% 50ML 50 ML IV ONE (16:45)
[2019-06-08] MEDS ORDERED: IRON DEXTRAN INJ 500 MG in SODIUM CHLORIDE 0.9% 500ML 500 ML IV PRN (16:45)
[2019-06-08] MEDS ORDERED: PANTOPRAZOLE SOD 40 MG TABEC PO SCH (17:00)
--- NOTE | 2019-06-08 17:23 | Diagnostic Imaging Report ---
Chest radiograph, single frontal view Clinical indication: Shortness of breath Comparison: 11/24/2018 Findings/impression: Since prior examination there has been development of the moderate to large left pleural effusion. The cardiac borders are obscured. The right lung is grossly clear. There is no pneumothorax. No acute osseous abnormalities. Signed by: Vasquez Beatty MD on 06/08/2019 5:20 PM
[2019-06-08 17:36] LABS: ABG PCO2 44 mmHg (41-51)
[2019-06-08 17:37] LABS: ABG HCO3 27 mmol/L (23-28); ABG PO2 120 mmHg (80-105)
[2019-06-08 18:00] LABS: BILIRUBIN,URINE NEGATIVE (NEGATIVE); CLARITY,URINE CLOUDY (CLEAR); COLOR,URINE YELLOW (YELLOW); KETONES,URINE NEGATIVE (NEGATIVE); LEUKOCYTE ESTERASE ,URINE SMALL (NEGATIVE); NITRITE,URINE NEGATIVE (NEGATIVE); PROTEIN,URINE DIPSTICK NEGATIVE (NEGATIVE); URINE UROBILINOGEN 0.2 mg/dL (0.2 - 1)
[2019-06-08 18:15] LABS: BACTERIA,URINE MANY /HPF; EPITHELIAL CELLS,URINE MANY /LPF; TRANSITIONAL EPI CELLS,URINE MODERATE
--- NOTE | 2019-06-08 18:46 | Diagnostic Imaging Report ---
ULTRASOUND: Thorax TECHNIQUE: Ultrasound evaluation of the thorax for pleural effusion localization. Color doppler was utilized to supplement the evaluation. HISTORY: Pleural effusions COMPARISON: Chest radiograph June 08, 2019. DISCUSSION: See impression IMPRESSION: Bilateral pleural effusions, most notably large on the left. Signed by: Dr. Aleksey Kamara D.O., M.M.M. on 06/08/2019 6:43 PM
[2019-06-08] MEDS ORDERED: ALBUTEROL/IPRATROPIUM 3 ML NEB NEB SCH (19:00)
[2019-06-08] MEDS: BUDESONIDE/FORMOTEROL 160/4.5MCG INHALER INH SCH (19:00)
--- NOTE | 2019-06-08 19:02 | Consultation ---
DATE OF CONSULTATION: 06/08/2019 HISTORY OF PRESENT ILLNESS: Ms. Lambert is 78 years old lady with history of hypertension, atrial fibrillation, chronic renal insufficiency, on Xarelto for atrial fibrillation. She started complaining of some shortness of breath. Her blood count noted to be extremely low, brought for management. Her hemoglobin was found to be 5.6, hematocrit 20. Talking to the patient herself. She is asymptomatic. She denied any abdominal discomfort, any nausea, any vomiting, any heartburn, any acid reflux, any constipation, any diarrhea, any blood in her stool or black colored stools. Her only complaint is shortness of breath. The patient in November of this year, she had upper and lower endoscopy by Dr. Mahan. Upper endoscopy revealed hiatal hernia. Negative Helicobacter pyloric gastritis. A colonoscopy revealed internal hemorrhoids. Diverticulosis, rectal polyp and colon polyp removed. REVIEW OF SYSTEMS: As mentioned above, otherwise unremarkable. ALLERGIES: NONE. MEDICATIONS: Current Medications in the hospital: Protonix, Lopressor, Synthroid, budesonide, Atrovent, iron, folic acid, albuterol, Lasix, Cozaar, and Remeron. PAST MEDICAL HISTORY: Hypertension, chronic renal insufficiency, and atrial fibrillation. She is taking Xarelto, which has stopped on admission. PAST SURGICAL HISTORY: Hysterectomy and history of D and C. FAMILY HISTORY: Her father at age 60 of myocardial infarction. Mother had breast cancer and lung cancer. SOCIAL HISTORY: She smokes, but she quit a few months ago. She occasionally socially drink alcohol. PHYSICAL EXAMINATION: GENERAL: Awake, alert, oriented. VITAL SIGNS: Pulse 102, afebrile, blood pressure 106/88. NECK: Supple. LUNGS: Clear. HEART: Irregularly irregular rhythm. ABDOMEN: Soft, nontender, no acute sign. EXTREMITIES: 2+ edema, both lower extremities. LABORATORY TEST: BUN is 37, creatinine 1.83, sodium 138, potassium 5. Liver function normal. Iron saturation 7%. TSH highly elevated of 27. PT 22, INR 1.93. IMPRESSION: Gastrointestinal bleed, iron deficiency anemia. No clear cause at this point. The patient will be undergoing 2 units of blood transfusion. We will check her CBC after the blood transfusion. She is on Protonix. Xarelto has stopped. She already had upper and lower endoscopy a few months ago. I think when this episode is over, we need to study her small bowel and of course, need to be started on iron and vitamin C. Her edema probably related to congestive heart failure due to atrial fibrillation and severe anemia, currently clinically stable and I will leave the management of her thyroid hyperfunction to the primary care. Amy Haider MD RD/MODEric /[id number]
[2019-06-08] MEDS: LEVALBUTEROL HCL SOLN NEBU 0.63 MG/3 ML NEB INH PRN (19:55)
[2019-06-08] MEDS: IPRATROPIUM BROMIDE 0.02% 2.5 ML NEB NEB SCH (19:55)
[2019-06-08 20:13] VITALS: BP 136/73
--- NOTE | 2019-06-08 20:25 | NUR ---
TEST DOSE IRON DEXTRAN INFUSING AT THIS TIME, PATIENT TOLERATING THE INFUSION WITHOUT ADVERSE EFFECT. WILL MONITOR CLOSELY FOR ANY REACTION.
[2019-06-08] MEDS ORDERED: FUROSEMIDE INJ 10 MG/ML 4 ML VIAL IV SCH (21:00)
--- NOTE | 2019-06-08 21:13 | Consultation ---
DATE OF CONSULTATION: Pulmonary Consultation HISTORY OF PRESENT ILLNESS: Charming, but unfortunate 78-year-old woman, admitted with shortness of breath, which she complains has been complaining of for several months. History of GI workup in November with evidence of hiatal hernia, erosive gastritis, and polyps, which were removed. She is chronically anticoagulated because she has atrial fibrillation. She denies [place] or stroke. She has had decreased appetite of late and has been losing weight. She was admitted from doctor's office, diagnosed with severe anemia renal failure with a creatinine of 1.8, pleural effusions. She was also found to be hypothyroid with TSH of 27. SOCIAL HISTORY: She is an ex-smoker, smoked for over 60 years. She was born in [facility]. SOCIAL HISTORY: Hysterectomy. MEDICATIONS: Include: 1. Iron. 2. Lasix. 3. Lisinopril. 4. Losartan. 5. Megace. 6. Mirtazapine. 7. Protonix. 8. Xarelto. PHYSICAL EXAMINATION: GENERAL: This is a frail, pale white female, anxious, but in no acute distress. VITAL SIGNS: Temperature 97.5, pulse 66 and irregular, respirations 16, and blood pressure 147/76. HEAD: Head, normocephalic and atraumatic. Eyes, extraocular movements intact. LUNGS: Diminished breath sounds in both bases. Bilateral rales. HEART: Irregular rhythm. ABDOMEN: Scaphoid. EXTREMITIES: Nonedematous. PLAN: To transfuse, probable thoracentesis. Ultrasound results and chest x-ray pending. Thyroid replacement. Mobilization. The patient requests home oxygen, likely iron deficiency anemia. Thank you for this kind referral. Timur Valladares MD DS/MODL /[id number]
[2019-06-08] MEDS: MIRTAZAPINE 15 MG TAB PO SCH (22:15)
--- NOTE | 2019-06-08 22:22 | NUR ---
DR ALMANZAR ON THE UNIT, ORDER RECEIVED FOR CT ABDOMEN/PELVIC IN THE MORNING. HE'S MADE AWARE OF THE PATIENT'S BUN AND CREATININE LEVEL WHICH BASE ON RADIOLOGY PROTOCOL CONTRAST CANNOT BE INJECTED. CMP LAB WORK ORDERED FOR THE MORNING.
[2019-06-09] VITALS (8 sets, daily range): BP systolic 127–162; BP diastolic 55–88
--- NOTE | 2019-06-09 00:32 | NUR ---
ROUNDS MADE, PATIENT SOUNDLY ASLEEP WITH C-PAP ON. NO RESPIRATORY DISTRESS OBSERVED, BED ALARM ON AND CALL LIGHT WITHIN EASY REACH.
[2019-06-09] MEDS: IPRATROPIUM BROMIDE 0.02% 2.5 ML NEB NEB SCH ×4 (02:30→19:20)
[2019-06-09] MEDS ORDERED: SODIUM CHLORIDE 0.9% 250ML 250 ML ONE ×2 (02:42→13:55)
--- NOTE | 2019-06-09 03:45 | NUR ---
FIRST UNIT OF BLOOD TRANSFUSION STARTED AT 0315, PATIENT TOLERATING TRANSFUSION WITHOUT ADVERSE EFFECT. WARM BLANKET PROVIDED FOR COMFORT, PATIENT ENCOURAGED TO REPOSITION FREQUENTLY IN BED.
[2019-06-09] MEDS: LEVOTHYROXINE SODIUM 50 MCG TAB PO SCH (05:47)
--- NOTE | 2019-06-09 06:30 | NUR ---
FIRST UNIT OF BLOOD TRANSFUSION COMPLETED AT 0605, NO ADVERSE EFFECT OBSERVED AND PATIENT CONDITION IS STABLE WITHOUT RESPIRATORY DISTRESS.
[2019-06-09] MEDS: LEVALBUTEROL HCL SOLN NEBU 0.63 MG/3 ML NEB INH PRN ×2 (07:25→19:20)
[2019-06-09] MEDS: BUDESONIDE/FORMOTEROL 160/4.5MCG INHALER INH SCH ×2 (07:30→19:20)
[2019-06-09 08:45] LABS: HEMATOCRIT 28.9 % (34.2-44.1); HEMOGLOBIN 8.6 g/dL (12.0-16.0); LYMPHOCYTES # (AUTO) 0.5 (1.0-3.2); LYMPHOCYTES % 9.1 % (18.0-39.1); MEAN CORPUSCULAR HEMOGLOBIN 25.1 pg (28-32); MEAN CORPUSCULAR HGB CONC 29.8 g/dL (31-35); MEAN CORPUSCULAR VOLUME 84.5 fL (81-99); MONOCYTES # (AUTO) 0.1 (0.2-0.8); MONOCYTES % 1.8 % (4.4-11.3); NEUTROPHILS # (AUTO) 4.5 (2.1-6.9); NEUTROPHILS % 88.5 % (38.7-80.0); PLATELET COUNT 376 x10e3/uL (140-360); RED BLOOD COUNT 3.42 x10e6/uL (3.6-5.1); RED CELL DISTRIBUTION WIDTH 15.9 % (11.7-14.4)
[2019-06-09] MEDS: FERROUS SULFATE 325 MG TAB PO SCH ×2 (08:48→17:13)
[2019-06-09] MEDS: ASCORBIC ACID 500 MG TAB PO SCH (08:48)
[2019-06-09] MEDS: PANTOPRAZOLE SOD 40 MG TABEC PO SCH ×2 (08:48→17:13)
[2019-06-09] MEDS: FUROSEMIDE INJ 10 MG/ML 4 ML VIAL IV SCH (08:48)
[2019-06-09] MEDS: FOLIC ACID 1 MG TAB PO SCH (08:48)
[2019-06-09] MEDS: METOPROLOL TARTRATE 25 MG TAB PO SCH ×2 (08:49→17:14)
[2019-06-09 08:52] LABS: INR 1.14; PROTHROMBIN TIME 15.2 seconds (11.9-14.5)
[2019-06-09] MEDS ORDERED: FERROUS SULFATE 325 MG TAB PO SCH ×2 (09:00)
[2019-06-09] MEDS ORDERED: LOSARTAN POTASSIUM 100 MG TAB PO SCH (09:00)
[2019-06-09 09:02] LABS: ALBUMIN 2.7 g/dL (3.5-5.0); ALBUMIN/GLOBULIN RATIO 0.9 (0.8-2.0); ANION GAP 17.4 mmol/L (8-16); CALCIUM 8.9 mg/dL (8.4-10.2); CREATININE, SERUM 1.94 mg/dL (0.57-1.11); POTASSIUM 4.4 mmol/L (3.5-5.1)
--- NOTE | 2019-06-09 12:01 | NUR ---
thoracentesis and CT complete as ordered. 1 more unit PRBC to be given.
--- NOTE | 2019-06-09 12:31 | Diagnostic Imaging Report ---
TECHNIQUE: CT of the chest, abdomen and pelvis without intravenous contrast. INDICATION: COMPARISON: None. TECHNIQUE: Chest, Abdomen and pelvis were scanned utilizing a multidetector helical scanner from the thoracic inlet to the pubic symphysis without administration of IV contrast. Coronal and sagittal reformations were obtained. Routine protocol was performed. Lack of IV contrast limits evaluation of visceral and vascular structures. COMPLICATIONS: None RADIATION DOSE: Total DLP: 235.9 mGy*cm Dose modulation, iterative reconstruction, and/or weight based adjustment of the mA/kV was utilized to reduce the radiation dose to as low as reasonably achievable. FINDINGS: LINES AND TUBES: None LUNGS AND AIRWAYS: The central airways are patent. There is a large right and small left pleural effusion with associated lung sedation atelectasis. Scattered 1 to 2 mm solid pulmonary nodules for example in the right upper lobe on series 4, image 16, image 25, and image 48. There is a 3 mm solid nodule left upper lobe on image 21 and image 36. There is a 2 mm solid nodule in the left lower lobe on image 46. PLEURA: The pleural spaces are clear. HEART AND MEDIASTINUM: The thyroid gland is normal. No significant mediastinal, hilar or axillary lymphadenopathy is seen. There is leftward shift of the heart. Extensive coronary and thoracic aortic atherosclerotic calcifications. Large hiatal hernia HEPATOBILIARY: No focal hepatic lesions. No biliary ductal dilatation. Cholelithiasis. SPLEEN: No splenomegaly. PANCREAS: No focal masses or ductal dilatation. ADRENALS: No adrenal nodules. KIDNEYS/URETERS: Bilateral renal atrophy. No hydronephrosis, stones, or solid mass lesions. PELVIC ORGANS/BLADDER: Unremarkable. PERITONEUM / RETROPERITONEUM: No free air or fluid. LYMPH NODES: No lymphadenopathy. VESSELS: Extensive atherosclerotic calcifications within the abdominal aorta and branch vessels. GI TRACT: There is a distended stool and contrast filled rectum, measuring up to 8.1 cm with mild perirectal stranding. Scattered colonic diverticulosis without CT evidence of diverticulitis. BONES AND SOFT TISSUES: Diffuse anasarca. Old healed left-sided rib fractures. Diffuse osteopenia. IMPRESSION: Large right and small left pleural effusion with associated patchy opacities, likely atelectasis. Superimposed pneumonia is possible in the appropriate clinical setting. Distended stool and contrast filled rectum with mild perirectal stranding, which may represent fecal impaction/proctitis. Large hiatal hernia. Cholelithiasis without CT evidence of cholecystitis. Scattered bilateral pulmonary nodules, measuring up to 3 mm. If there is a high risk for malignancy, follow-up chest CT may be considered in 12 months. Signed by: Dr. Magali Kelly MD on 06/09/2019 12:28 PM
[2019-06-09 13:01] LABS: BODY FLUID COLOR YELLOW; BODY FLUID TYPE PLEURAL
[2019-06-09 13:02] LABS: BODY FLUID APPEARANCE SL.CLOUDY; RBC,BODY FLUID 15 cells/uL; WBC,BODY FLUID 45 cells/uL
--- NOTE | 2019-06-09 13:11 | NUR ---
Nutrition Intervention Note RD Recommendation(s) for Physician: Continue diet as ordered Plan of Care: RD following, monitoring for tolerance and adequacy Nutrition reason for involvement: Nutrition Risk Trigger BMI 17.2 RD Assessment Initial encounter with patient. Nutrition Dx: pt has no known food allergies. Physical activity and function: Pt has not been walking. Pt is able to feed herself. Nutrition- focused physical findings: Pt with missing teeth and she wears dentures. States that her son will bring them. Loss of lean bosy mass, loss of subcutaneous fat, hollow orbitals, temporal wasting, prominent ribs, acromion process, clavicle, scapula, reports poor appetite and involuntary wt loss for several months, Pt states she drinks commercial beverages and prefers strawberry flavor. Pt is eating well for lunch. Principal Problems/Diagnoses:AC Severe Anemia, GI Bleed, bilateral pleural effusions/thoracentesis, PMH: HTN, atrial fibrillation, CKD, COPD GI: soft non tender Skin: intact skin Labs: (06/09/2019) biochemical data reviewed Meds: (06/09/19)MAR reviewed Ht: 62in. Wt:94.02lbs BMI:17.2kg/M2 IBW:110lbs The patient meets criteria for unspecified SEVERE protein-calorie malnutrition. Energy intake: <75% of estimated energy requirements for >3 months Weight loss: >10% in 6 months (Chronic) Fat loss: Severe, Muscle loss: Severe Supporting Evidence: Fluid accumulation: Moderate Functional Status: measurably reduced Nutrition Prescription (Diet Order): Cardiac diet Estimated Nutritional Needs: 1068 - 1281calories/day (25-30 kcal/kg/BW) 42-85g protein/day ( 1-2g pro/kg/ BW) Diet Adequacy: Not meeting calorie needs, Not meeting protein needs Diet Education Needs Assessment: Diet education indicated and patient agreeable. Nutrition Care Level: Low Nutrition Diagnosis: Malnutrition related to chronic illness as evidenced by loss of lean by mass and subcutaneous fat Goal: Patient will meet 75-100% of estimated needs by follow up Progress: Progressing Interventions: General healthful diet, Schedule of food, -modified diet, Commercial beverage. Monitoring/Evaluation: Total energy intake, Total protein intake, Weight Signed: Edson Momin RD, LD, [facility]
[2019-06-09 13:13] LABS: LYMPHOCYTES,BODY FLUID 41 %; MONO/MACROPHG,BODY FLUID 38 %; NEUTROPHILS,BODY FLUID 21 %
--- NOTE | 2019-06-09 14:43 | NUR ---
PRBC started wnd no reaction after 15min. will monitor status closely. echo done.
--- NOTE | 2019-06-09 15:31 | Consultation ---
DATE OF CONSULTATION: 06/09/2019 Cardiology Consultation CONSULTING PHYSICIAN: Fernando Vazquez MD, Interventional Cardiology. REASON FOR CONSULTATION: Shortness of breath. HISTORY OF PRESENT ILLNESS: Ms. Lambert is an 78-year-old woman with a history of hypertension, atrial fibrillation, former smoker, presents with weight loss, decreased appetite/failure to thrive and abnormal labs consistent with severe anemia with an initial hemoglobin of 5.6 on admission and renal failure with a creatinine of 1.8 on admission. She is noted to have lower extremity edema bilaterally in addition to the described shortness of breath. She also has large right pleural effusion, now status post thoracentesis today. The patient is confused and thinks she is at home. She denies any chest discomfort and describes stable shortness of breath. She underwent a PRBC transfusion with improvement in her hemoglobin to above 8. REVIEW OF SYSTEMS: A 12-system review is negative except for as noted above and limited by her confusion. ALLERGIES: NO KNOWN DRUG ALLERGIES. PAST MEDICAL HISTORY: Significant for hypertension, atrial fibrillation, hypothyroidism, and anemia. SOCIAL HISTORY: Former smoker. No reported alcohol or drug use. FAMILY HISTORY: Noncontributory. PHYSICAL EXAMINATION: VITAL SIGNS: Temperature 96.8, heart rate 64, blood pressure 158/83, respiratory rate 18, and O2 saturation 97%. GENERAL: In no acute distress. Alert. NECK: No JVD. Sitting upright today. No carotid bruit. CARDIOVASCULAR: Irregularly irregular rate and rhythm. Normal S1 and S2. No S3 or S4. ABDOMEN: Soft. EXTREMITIES: 2+ edema to both lower extremities. SKIN: Pale. NEURO: Confused. CARDIOVASCULAR MEDICATIONS: Reviewed. Metoprolol tartrate 25 mg twice daily, furosemide 40 mg daily, losartan 100 mg daily, ferrous sulfate, and iron dextran. STUDIES: Sodium 142, potassium 4.4, chloride 104, bicarbonate 25, BUN 36, creatinine 1.94, and glucose 95. White blood cells 5.03, hemoglobin 8.6, and platelets 376. INR 1.1, PT 15.2, and PTT 31.8. AST 20, ALT 15, alkaline phosphatase 64, and total bilirubin 1.5. ASSESSMENT: An 78-year-old woman presents with: 1. Severe anemia and suspected gastrointestinal bleed. 2. Cachexia, weight loss. 3. Pulmonary nodules on imaging study. 4. Lower extremity edema concerning for acute heart failure, unspecified. 5. Renal failure, possibly chronic. 6. Hypothyroidism. 7. Cachexia. 8. Hypertension. RECOMMENDATIONS: 1. Diuretic therapy initiated. 2. Monitor for gross bleeding. 3. Continue beta-dale with liberalized antihypertensive strategy at this point given suspected bleed. 4. Keep on telemetry for now. 5. Obtain echocardiogram. 6. Avoid antiplatelets or anticoagulants at this point. Thank you for the opportunity to participate in the care of Ms. Lambert. Please feel free to call with any questions, . MD ABDIRASHID Corrigan/MODEric /[id number]
--- NOTE | 2019-06-09 16:32 | Progress Note ---
DATE: 06/09/2019 SUBJECTIVE: Doing great. Awake, alert, and oriented. Has no GI complaint. Tolerating her food intake well. She had no bowel movement for the past two days. Her blood transfusion finished. Her hemoglobin today is 8.6 and hematocrit 28.5. OBJECTIVE: VITAL SIGNS: Afebrile at 96.8, blood pressure 158/83, and pulse 64. Nothing to add from GI standpoint except when the patient leave the hospital, we will plan for a small bowel evaluation. The patient recently had upper and lower endoscopy. Amy Haider MD RD/SOHEILA /[id number]
--- NOTE | 2019-06-09 19:20 | NUR ---
Report received from morning rn.patient is lyeing in the bed.
[2019-06-09] MEDS: MIRTAZAPINE 15 MG TAB PO SCH (20:48)
--- NOTE | 2019-06-09 22:07 | NUR ---
Assessment done.confused.patient is trying to get out of the room.patient stated that "i want to go to my house,this is not my room".as a nurse I tried to explain to the pt.no positive out come.stayed with patient.not willing to stay in the bed.contacted to her daughter.she talked to the patient,suddently became calm and patient is ready to stay in the room.safely back to bed. bed alarm on.bed locked and in lowest position.phone and call light within reach.instructed to call for assistance as needed.iv left for arm patent.
--- NOTE | 2019-06-09 23:59 | NUR ---
Assisted to use bathroom.patient is back to bed safely.keep monitor frequently.
[2019-06-10] VITALS (7 sets, daily range): BP systolic 118–159; BP diastolic 59–82
[2019-06-10] MEDS: IPRATROPIUM BROMIDE 0.02% 2.5 ML NEB NEB SCH ×4 (02:00→19:00)
[2019-06-10] MEDS: LEVALBUTEROL HCL SOLN NEBU 0.63 MG/3 ML NEB INH PRN ×2 (02:00→07:20)
[2019-06-10] MEDS: LEVOTHYROXINE SODIUM 50 MCG TAB PO SCH (05:37)
[2019-06-10 05:52] LABS: BASOPHILS % 0.2 % (0.0-1.0); HEMATOCRIT 31.8 % (34.2-44.1); HEMOGLOBIN 9.5 g/dL (12.0-16.0); LYMPHOCYTES % 10.2 % (18.0-39.1); MEAN CORPUSCULAR HGB CONC 29.9 g/dL (31-35); MEAN CORPUSCULAR VOLUME 86.9 fL (81-99); MONOCYTES # (AUTO) 0.8 (0.2-0.8); MONOCYTES % 7.8 % (4.4-11.3); NEUTROPHILS # (AUTO) 7.9 (2.1-6.9); NEUTROPHILS % 81.5 % (38.7-80.0); PLATELET COUNT 360 x10e3/uL (140-360); RED BLOOD COUNT 3.66 x10e6/uL (3.6-5.1); RED CELL DISTRIBUTION WIDTH 16.5 % (11.7-14.4)
[2019-06-10 06:22] LABS: ALBUMIN 2.5 g/dL (3.5-5.0); ANION GAP 15.5 mmol/L (8-16); CALCIUM 8.3 mg/dL (8.4-10.2); CREATININE, SERUM 2.13 mg/dL (0.57-1.11); POTASSIUM 3.5 mmol/L (3.5-5.1)
--- NOTE | 2019-06-10 06:58 | NUR ---
Bed side shift report given to the on coming rn.stable condition.
--- NOTE | 2019-06-10 07:10 | NUR ---
PT RESTING IN BED AA0X3. ABLE TO ANSWER ALL ORIENTATION QUESTIONS PT DENIES ANY PAIN HAS AN IV TO THE LEFT WRIST 20 SL PT IS ON RA, NO SOB NOTED LEFT BACK DRESSING FROM THORACENTESIS IS DRY AND INTACT PITTING TO BILATERAL LOWER LEGS 3+ WILL CONTINUE TO MONITOR PT CLOSELY SIDE RAILSX2, BED WHEELS LOCKED, CALL LIGHT IS WITHIN EASY REACH INSTRUCTED TO CALL FOR ASSISTANCE IF NEEDED
[2019-06-10] MEDS: BUDESONIDE/FORMOTEROL 160/4.5MCG INHALER INH SCH ×2 (07:20→19:00)
[2019-06-10] MEDS: FOLIC ACID 1 MG TAB PO SCH (08:03)
[2019-06-10] MEDS: METOPROLOL TARTRATE 25 MG TAB PO SCH ×2 (08:03→16:31)
[2019-06-10] MEDS: FERROUS SULFATE 325 MG TAB PO SCH ×2 (08:03→16:31)
[2019-06-10] MEDS: HYDRALAZINE HCL 25 MG TAB PO SCH ×3 (08:03→21:06)
[2019-06-10] MEDS: FUROSEMIDE INJ 10 MG/ML 4 ML VIAL IV SCH (08:03)
[2019-06-10] MEDS: ASCORBIC ACID 500 MG TAB PO SCH (08:03)
[2019-06-10] MEDS: POLYETHYLENE GLYCOL 3350 17 GM PACK PO SCH (08:03)
[2019-06-10] MEDS: PANTOPRAZOLE SOD 40 MG TABEC PO SCH ×2 (08:03→16:31)
--- NOTE | 2019-06-10 12:14 | NUR ---
PT HAS SIGNED CONSENT FOR THORACENTESIS
--- NOTE | 2019-06-10 13:22 | Diagnostic Imaging Report ---
Date and Time: 06/09/2019 Procedure: Ultrasound-guided left thoracentesis switchboard operator helper: Dr. Forbes Pre-operative diagnosis: Left pleural effusion Post-operative diagnosis: Left pleural effusion Conscious Sedation: None Additional Medications: Lidocaine 1% for local anesthesia Estimated blood loss: Minimal Blood products administered: None Specimens: 1200 cc straw-colored fluid Implants: None Consultations: No immediate Condition at completion: Stable Disposition: Returned to [facility] DISCUSSION: Informed consent was obtained and documented in the medical record. Patient was placed in a sitting position on the sonographic table. Preliminary sonographic evaluation confirmed presence of a large left pleural effusion. The left posterolateral chest wall was prepped and draped in the standard sterile fashion. A suitable percutaneous intercostal approach to the pleural space was identified and 1% lidocaine was infiltrated into the skin and subcutaneous tissues for local anesthesia. Then under continuous sonographic guidance a 5 Vietnamese Yueh needle catheter was advanced into the pleural space. A permanent sonographic image was stored in the medical record. The catheter was advanced off the needle and connected to vacuum bottle with subsequent evacuation of 1200 cc straw-colored fluid. Additional fluid removal was deferred in light of dull left-sided chest pain after completion of the first bottle. Final sonographic image showed partial evacuation of the effusion. The catheter was removed and a sterile dressing was applied. The patient tolerated the procedure well without immediate complication. FINDINGS: Large left pleural effusion. IMPRESSION: Successful ultrasound-guided left thoracentesis with evacuation of 1200 cc straw-colored fluid. Specimen was submitted for laboratory analysis as requested by the referring clinical team. Signed by: Dr. Timur Forbes M.D. on 06/10/2019 1:19 PM
--- NOTE | 2019-06-10 16:26 | History and Physical ---
CHIEF COMPLAINT: 1. Shortness of breath. 2. Weakness. 3. Severe anemia. HISTORY OF PRESENT ILLNESS: This is an 78-year-old female with a past medical history of atrial fibrillation on Xarelto, congestive heart failure, hypertension, COPD, and hyperlipidemia, who was in her usual state of health until patient was seen at Dr. Isaac Duran's office, I am on-call for him. The patient has above symptoms, so he did the lab, found to have a hemoglobin of 5.6. The patient was admitted to the hospital for acute GI bleeding. The patient appears in no distress. No abdomen pain. No bleeding per rectum. No nausea, no vomiting. Has some shortness of breath and leg edema. No diarrhea. No constipation. No headache. No dizziness. PAST MEDICAL HISTORY: 1. Hypertension. 2. Hyperlipidemia. 3. Atrial fibrillation. 4. COPD. PAST SURGICAL HISTORY: History of hysterectomy, EGD and colonoscopy, rectal adenoma plus polyp removed in 2019. FAMILY HISTORY: Mother diagnosed with hypertension with breast and lung cancer. SOCIAL HISTORY: The patient smokes cigarettes, drinks alcohol occasionally. MEDICATIONS: List attached. REVIEW OF SYSTEMS: GENERAL: Denies fatigue or weakness. HEENT: No diplopia. No blurry vision. CARDIOPULMONARY: Has no chest pain, but has some shortness of breath, mild cough. ALIMENTARY SYSTEM: No nausea, no vomiting, no diarrhea. No constipation. No bleeding per rectum. GENITOURINARY SYSTEM: No dysuria, hematuria. MUSCULOSKELETAL: Has some joint pain and leg pain. CENTRAL NERVOUS SYSTEM: No seizures. No focal weakness. PHYSICAL EXAMINATION: GENERAL: This is an 78-year-old female, who is alert, oriented x3, in no gross distress. VITAL SIGNS: Temperature 98.2, pulse 80, respiratory rate 18, blood pressure 130/80. HEENT: Head is atraumatic and normocephalic. Pupils are bilaterally equal and reactive to light. Extraocular muscles are intact. NECK: Supple. No JVD. No carotid bruit. LUNGS: Clear to auscultation and percussion bilaterally. No added sounds. HEART: S1 and S2. Regular rate and rhythm. No S3, S4, or murmur. ABDOMEN: Soft, nontender. No guarding. No rigidity. EXTREMITIES: +1 to +2 pitting edema. Peripheral pluses +1. HOTEL MANAGER: Grossly nonfocal. LABORATORY AND DIAGNOSTIC DATA: Hemoglobin 5.6, hematocrit 20.4, BUN 36, creatinine 1.94. Chest CT shows right pleural effusion and some pulmonary nodules and gallstone. ASSESSMENT: 1. Severe symptomatic anemia, rule out gastrointestinal bleeding. This may be possible from Xarelto. 2. Atrial fibrillation. 3. Hypertension. 4. Congestive heart failure. 5. Chronic obstructive pulmonary disease. PLAN: Admit the patient to [facility]. Cardiology consult with Dr. Torres and Pulmonary consult Dr. Gandara, Hematology consult, Dr. Barboza and GI consult, Dr. Bruno. Hold Xarelto. Start on Pepcid 20 mg IV q.12 hours. 2 units of blood transfusion. The patient was put on every day. Continue home medicine except change Lasix to 40 once a day. Lab in the morning. Condition and prognosis are guarded. MD YOSSI Fagan/SOHEILA /[id number]
--- NOTE | 2019-06-10 19:00 | NUR ---
Bed side shift report taken from morning rn.patient is watching TV.stable condition.
[2019-06-10] MEDS: MIRTAZAPINE 15 MG TAB PO SCH (21:06)
--- NOTE | 2019-06-10 22:46 | NUR ---
Getting neb treatment.no resp.distress.bed alarm on.bed locked and in lowest position.phone and calllight within reach.instructed to call for assistance as needed.
[2019-06-11] VITALS (8 sets, daily range): BP systolic 118–170; BP diastolic 60–80
[2019-06-11] MEDS: IPRATROPIUM BROMIDE 0.02% 2.5 ML NEB NEB SCH ×4 (00:30→19:27)
--- NOTE | 2019-06-11 00:38 | NUR ---
Maintaining npo.bp checked and noted 154/76 mmof hg.
--- NOTE | 2019-06-11 01:37 | Progress Note ---
DATE: 06/10/2019 Cardiology Progress Note SUBJECTIVE: Denies any chest discomfort. No new complaints today. OBJECTIVE: VITAL SIGNS: Temperature 97.5, heart rate 75, blood pressure 118/59, respiratory rate 17, O2 saturation 92%. GENERAL: No acute distress. Alert. NECK: No JVD. CHEST: Clear to auscultation. CARDIOVASCULAR: Irregularly irregular rate and rhythm. Normal S1 and S2. Systolic ejection murmur. No S3. No S4. ABDOMEN: Soft, nontender. EXTREMITIES: 1+ edema in bilateral lower extremities, overall improving. CARDIOVASCULAR MEDICATIONS: Reviewed. Metoprolol tartrate 25 mg b.i.d., furosemide 40 mg daily, hydralazine 25 mg t.i.d. STUDIES: Reviewed. Creatinine increasing from 1.9 to 2.13 today, potassium 3.5, bicarbonate 25, sodium 141, BUN 39, glucose 90. White blood cells 9.7, hemoglobin 9.5 up from 8.6 and initial 5.6, and platelets 360. INR 1.1. AST 16, ALT 14, alkaline phosphatase 57. Echocardiogram reviewed, has improvement in left ventricular systolic function with LVEF 40% by atrial enlargement, mild left ventricular hypertrophy, mild mitral regurgitation, [id number] tricuspid regurgitation, pulmonary hypertension with estimated RVSP of 58 mmHg, trace pulmonic regurgitation, trivial pericardial effusion and pleural effusions observed and mild aortic regurgitation also noted. ASSESSMENT: 1. Anemia in the setting of gastrointestinal bleed while on Xarelto. 2. Premature ventricular contractions on telemetry. 3. Cachexia. 4. Pulmonary nodules. 5. Acute kidney injury and chronic kidney disease. 6. Hypertension. 7. Fveij-ib-kvbzhrg systolic heart failure with LVEF 40%. 8. Hypothyroidism. 9. Atrial fibrillation. RECOMMENDATIONS: 1. Continue beta-dale. 2. Continue diuretics. 3. Monitor H and H. the patient is status post PRBC transfusion for acute anemia with improvement in hemoglobin. 4. Monitor electrolytes and renal function. 5. The patient is seen by GI. Per note, the patient had recent upper and lower endoscopies, and she has been advised on outpatient small bowel evaluation. For now, not a candidate for antiplatelets or anticoagulants until full evaluation for source of bleeding confirmed. 6. Consider also evaluation for pulmonary nodules as the patient with a history of smoking and cachexia. Should have possible malignancy within differential. MD ABDIRASHID Corrigan/SOHEILA /[id number]
[2019-06-11] MEDS: LEVOTHYROXINE SODIUM 50 MCG TAB PO SCH (05:20)
[2019-06-11 05:30] LABS: BASOPHILS % 0.4 % (0.0-1.0); EOSINOPHILS # (AUTO) 0.1 (0.0-0.4); EOSINOPHILS % 0.8 % (0.0-6.0); HEMATOCRIT 31.8 % (34.2-44.1); HEMOGLOBIN 9.8 g/dL (12.0-16.0); LYMPHOCYTES # (AUTO) 0.9 (1.0-3.2); LYMPHOCYTES % 10.9 % (18.0-39.1); MEAN CORPUSCULAR HEMOGLOBIN 26.2 pg (28-32); MEAN CORPUSCULAR HGB CONC 30.8 g/dL (31-35); MONOCYTES # (AUTO) 0.5 (0.2-0.8); MONOCYTES % 6.2 % (4.4-11.3); NEUTROPHILS # (AUTO) 6.4 (2.1-6.9); NEUTROPHILS % 81.3 % (38.7-80.0); PLATELET COUNT 334 x10e3/uL (140-360); RED BLOOD COUNT 3.74 x10e6/uL (3.6-5.1)
[2019-06-11 06:01] LABS: ANION GAP 13.7 mmol/L (8-16); CALCIUM 7.9 mg/dL (8.4-10.2); CREATININE, SERUM 1.94 mg/dL (0.57-1.11)
[2019-06-11 06:03] LABS: POTASSIUM 2.7 mmol/L (3.5-5.1)
[2019-06-11] MEDS: LEVALBUTEROL HCL SOLN NEBU 0.63 MG/3 ML NEB INH PRN (06:15)
--- NOTE | 2019-06-11 06:17 | NUR ---
Lab critical value k 2.[address]Patel Washington.ordered to call .
[2019-06-11] MEDS: BUDESONIDE/FORMOTEROL 160/4.5MCG INHALER INH SCH ×2 (06:22→19:27)
--- NOTE | 2019-06-11 06:28 | NUR ---
Paged to 's office to inform lab critical value k 2.7. is covering for .paged.waiting for call back.
--- NOTE | 2019-06-11 06:50 | NUR ---
Bed side shift report given to the on coming rn.stable condition.
--- NOTE | 2019-06-11 07:00 | NUR ---
Received new orders from dr. Fox.
--- NOTE | 2019-06-11 07:27 | NUR ---
Rcvd patient in report this am. Patient is asleep in bed at this time. no s/s of distress noted
[2019-06-11] MEDS ORDERED: SODIUM CHLORIDE 0.9% 250ML 250 ML ONE ×2 (07:47→11:13)
[2019-06-11] MEDS ORDERED: POTASSIUM CHLORIDE 20MEQ/100ML 200 ML IV ONE ×2 (08:00→08:15)
[2019-06-11] MEDS: FERROUS SULFATE 325 MG TAB PO SCH ×2 (08:00→17:29)
[2019-06-11] MEDS: PANTOPRAZOLE SOD 40 MG TABEC PO SCH ×2 (08:59→17:29)
[2019-06-11] MEDS: METOPROLOL TARTRATE 25 MG TAB PO SCH ×2 (08:59→17:29)
[2019-06-11] MEDS: HYDRALAZINE HCL 25 MG TAB PO SCH ×3 (08:59→21:06)
[2019-06-11] MEDS: ASCORBIC ACID 500 MG TAB PO SCH (09:00)
[2019-06-11] MEDS: POLYETHYLENE GLYCOL 3350 17 GM PACK PO SCH (09:00)
[2019-06-11] MEDS: FOLIC ACID 1 MG TAB PO SCH (09:00)
--- NOTE | 2019-06-11 09:00 | NUR ---
patient is AAOx3. Patient lung weber clear to auscultation. Bowel sounds present x4. No edema noted. Left forearm IV in place. Patient is NPO at this time for thoracentesis and HIDA scan. No c/o pain. No shortness of breath noted
--- NOTE | 2019-06-11 09:37 | NUR ---
EDUCATED ABOUT IMM, SIGNED, FILED IN CHART, WITH COPY LEFT WITH FAMILY AT BEDSIDE.
--- NOTE | 2019-06-11 12:55 | Progress Note ---
DATE: 06/11/2019 Cardiology Progress Note SUBJECTIVE: Denies chest pain or shortness of breath. Denies any active gross bleeding. OBJECTIVE: VITAL SIGNS: Temperature 97.5, heart rate 70, blood pressure 120/60, respiratory rate 16, O2 saturation 93%. GENERAL: In no acute distress. Alert. NECK: No JVD. CHEST: Clear to auscultation. CARDIOVASCULAR: Irregularly irregular rate and rhythm, normal S1 and S2, no S3 or S4. ABDOMEN: Soft, nontender. EXTREMITIES: Trace edema. Warm distal extremities. CARDIOVASCULAR MEDICATIONS: Reviewed. The patient is on: 1. Protonix. 2. Furosemide 40 mg daily. 3. Hydralazine 25 mg b.i.d. 4. Metoprolol tartrate 25 mg b.i.d. 5. Ferrous sulfate 325 mg daily. STUDIES: Reviewed. Sodium 143, potassium 2.7, chloride 99, bicarbonate 33, BUN 37, creatinine 1.9, glucose 75. White blood cell 7.9, hemoglobin 9.8, platelets 334. INR 1.1, PT 15.2, PTT 31.8. AST 16, ALT 14, alkaline phosphatase 57, total bilirubin 0.8. ASSESSMENT: 1. An 78-year-old woman with anemia in the setting of GI bleed suspected. 2. Fxkkv-ao-dbrvzzz systolic heart failure. 3. Atrial fibrillation, previously on Xarelto. 4. Hypertension. 5. Cachexia. 6. Pulmonary nodules. 7. Hypothyroidism. RECOMMENDATIONS: 1. Monitor H and H. 2. Not currently a candidate for antiplatelets or anticoagulation given recent anemia from blood loss. 3. GI evaluation. Recently endoscopically assessed, GI recommending outpatient small-bowel evaluation. 4. Continue beta-dale. 5. Adjust diuretics as needed for volume status. 6. Replete electrolytes p.r.n. 7. Okay to discharge from a cardiovascular standpoint. MD ABDIRASHID Corrigan/SOHEILA /[id number]
--- NOTE | 2019-06-11 13:00 | NUR ---
Radiology nurse called and informed that the thoracentesis went well and 900ml of straw fluid was removed from right lung.
--- NOTE | 2019-06-11 13:17 | Diagnostic Imaging Report ---
Chest, 1 view, 06/11/2019. History: Post right thoracentesis. Comparison: CT chest 06/09/2019. Findings: The cardiac silhouette is enlarged. Left retrocardiac opacity is present. The right lung is clear. There is no evidence of a pneumothorax. There are no acute osseous or soft tissue abnormalities. Impression: No evidence of complication post right thoracentesis. Signed by: Juliocesar Tiwari on 06/11/2019 1:13 PM
[2019-06-11] MEDS ORDERED: DOCUSATE SODIUM 100 MG CAP PO PRN (13:30)
--- NOTE | 2019-06-11 13:41 | Diagnostic Imaging Report ---
Exam: Ultrasound guided thoracentesis Clinical History: Pleural effusion Consent: Benefits and risks were explained to the patient who gave consent to the procedure. Complication: None immediate Procedure: The patient was placed in uprightposition. The right posterior chest was prepped and draped in usual sterile fashion. 1% lidocaine was used as local anesthetic. Under ultrasound guidance, a thoracentesis catheter was inserted into the pleural cavity. Approximately 900 cc of clear yellow fluid was aspirated. The catheter was removed. The specimen was sent to the laboratory for further analysis. The patient tolerated the procedure well without any adverse reaction. A STAT chest x-ray was ordered. The patient left the department in stable condition. Impression: Ultrasound guided right thoracentesis. Signed by: Dr. Johnathan Cisneros MD on 06/11/2019 1:38 PM
--- NOTE | 2019-06-11 13:45 | Progress Note ---
DATE: SUBJECTIVE: No major change. Undergoing HIDA scan today. I have seen her because of her anemia, iron deficiency. Her hemoglobin and hematocrit are stable at 9.8 and 32. ASSESSMENT/PLAN: We are planning on performing a PillCam study for her small bowel as an outpatient when she gets discharged. Otherwise, nothing to add from the GI standpoint. Amy Haider MD RD/MODL /[id number]
--- NOTE | 2019-06-11 14:38 | NUR ---
I went to do the bedside pulmonary function test that ordered at 12:30 on 06/11/19. The patient was away in radiology getting a thoracentesis done. I called doctor chel office to check and see if he would still want to do the pft if the pt is having a thoracic procedure done. I was told by his concierge receptionist that he is out of town for 3 weeks but she can check with Dr. Gandara. She called me back and stated that Dr. Gandara said for me to wait and perform the test tomorrow 06/12/19.
--- NOTE | 2019-06-11 15:20 | NUR ---
Patient returned from radiology at this time.
--- NOTE | 2019-06-11 16:15 | Consultation ---
DATE OF CONSULTATION: 06/08/[address] Mulugeta Duran. HISTORY OF PRESENT ILLNESS: Yuki Lambert is an 78-year-old female, referred to me for evaluation of anemia. No history of hematochezia, melena, hematuria, hematemesis, or hemoptysis. The patient has chronic renal failure. The patient has been on Xarelto for atrial fibrillation. The patient is also known to have COPD. The patient had endoscopy by Dr. Mahan in the past, which showed the patient to have a rectal polyp, colonic polyps, diverticulosis coli, and hiatus hernia. FAMILY HISTORY: Noncontributory. FAMILY HISTORY: Noncontributory. ALLERGIES: REPORTED NONE. MEDICATIONS: At this time: 1. Lasix. 2. Protonix. 3. Mirtazapine. 4. Losartan. 5. Megace. 6. Ferrous sulfate. 7. Folic acid. 8. Metoprolol. 9. Protonix. 10. Budesonide. REVIEW OF SYSTEMS: HEENT: Normal. CARDIAC: History of hypertension, history of atrial fib. GI: History of GI bleed. : Normal. MUSCULOSKELETAL: Normal. SKIN: Normal. BREASTS: Normal. NEUROENDOCRINE: History of hypothyroidism. PHYSICAL EXAMINATION: GENERAL: Cachectic female, anemic. NECK: No palpable adenopathy. HEART: Within normal limits. LUNGS: Clear. ABDOMEN: Obese. RECTAL: Deferred. VAGINAL: Deferred. CENTRAL NERVOUS SYSTEM: Essentially normal. EXTREMITIES: Essentially normal. LABORATORY DATA: Lab investigations of interest show a hemoglobin of 5.6, hematocrit 20.4, MCV normal at 84.3, MCHC very low at 27.5, RDW high at 16.8, white count of 6103, and platelets are reported at 382,000. Chemistry shows a sodium of 138, potassium 5.1, chloride is 103, CO2 27, BUN 37, and creatinine 1.8. Total protein is low at 5.2 and albumin low at 2.7. TSH is high at 27.36. IMPRESSION: 1. Atrial fibrillation. 2. Anticoagulated with Xarelto. 3. Hematochezia during admission of 11/24/2018. 4. Hypertension. 5. Chronic obstructive pulmonary disease. 6. Gastrointestinal bleed in 2018. 7. Iron deficiency anemia. 8. Rule out combined deficiency anemia. 9. Coagulopathy with INR of 1.9. 10. Pleural effusion. 11. Hypothyroidism. PLAN, COMMENTS, AND SUGGESTIONS: Suggest vitamin K, B12 level is suggested as the MCV is normal, however, MCHC is low. This is combined deficiency anemia. Blood transfusion and INFeD. Stool for occult blood. Discontinue the Megace, as this will cause some mild phenomenon and the patient already is in atrial fibrillation. I will confine myself to Hematology only. Thank you very much for allowing me to participate in management of this patient. Radha Barboza MD MAQ/MODL /[id number] cc: MD Homer Corrigan MD Rukan Daccak, MD
--- NOTE | 2019-06-11 17:08 | Diagnostic Imaging Report ---
Hepatobiliary Scan with Gallbladder Ejection Fraction Clinical information: Gallstones; cachexia Technique: Following intravenous administration of 6.0 millicuries of Tc-99m mebrofenin, dynamic images of the abdomen in the anterior projection were obtained through 60 minutes. Additional static images were obtained at 90 minutes. Sincalide (CCK analog) 1.0 micrograms was administered intravenously over 30 minutes with additional imaging for determination of gallbladder ejection fraction. Discussion: Perfusion of the liver is normal. Extraction of tracer by the liver parenchyma is normal. Tracer appears promptly within the biliary tract. The gallbladder begins to fill by 90 minutes post injection of tracer and fills adequately. Tracer is seen in the small bowel by 90 minutes. The gallbladder ejection fraction with sincalide is 39% (normal greater than 40%). Impression: 1. Filling of the gallbladder excludes acute cystic duct obstruction/acute cholecystitis. 2. The decreased gallbladder ejection fraction of 39% supports the clinical diagnosis of chronic cholecystitis/gallbladder dyskinesia. Signed by: Dr. Liliya Anderson M.D. on 06/11/2019 5:05 PM
--- NOTE | 2019-06-11 17:49 | Diagnostic Imaging Report ---
Retroperitoneal ultrasound Indication: Severe anemia, acute kidney injury Technique: Select images from retroperitoneal ultrasound provided for interpretation: Comparison: CT abdomen/pelvis 06/09/2019. Findings: The right kidney measures 7.2 cm in greatest length. The echotexture is increased. There is no evidence for mass. There is no collecting system dilatation or evidence of obstruction. No renal calculi evident. No adjacent free fluid or fluid collections. The left kidney measures 7.8 cm in greatest length. The echotexture is increased. There is no evidence for mass. There is no collecting system dilatation or evidence of obstruction. No renal calculi evident. No adjacent free fluid or fluid collections. Bladder is well distended and is normal. Ureteral jets are not visible. No free fluid in the pelvis. Survey images of the liver demonstrate no abnormalities. There is a left pleural effusion. IMPRESSION: 1. Increased renal echotexture consistent with medical renal disease. No hydronephrosis. 2. Sonographically normal bladder. 3. Left pleural effusion. Signed by: Dr. Adrian Crawford MD on 06/11/2019 5:46 PM
--- NOTE | 2019-06-11 19:00 | NUR ---
Walking rounds done and report received. Patient in NAD. Call bunn within reach, bed in lowest position, and call bunn within reach.
[2019-06-11] MEDS: MIRTAZAPINE 15 MG TAB PO SCH (21:06)
--- NOTE | 2019-06-11 23:00 | NUR ---
Patient resting in bed in NAD. No complaints voiced at this time. Bed in lowest position, locked bed alarm on and call bunn within.
--- NOTE | 2019-06-11 23:32 | Consultation ---
DATE OF CONSULTATION: 06/11/2019 HISTORY OF PRESENT ILLNESS: This is an 78-year-old white female with a history of hypertension, atrial fibrillation, history of prior GI bleed, history of acute kidney injury and prior chronic renal insufficiency, history of protein-calorie malnutrition and relative cachexia, history of atrial fibrillation, COPD, history of family hypertension, tobacco addiction, renal consult for management of kidney failure. PHYSICAL EXAMINATION: She is currently awake, alert, oriented x3, lying supine in bed. No apparent distress. Extremely poor muscle mass. Denies nausea, vomiting, or headache. She denies ever having been told that she had abnormal kidney function. She has a moment denies nausea, vomiting, abdominal pain, or diarrhea. LABORATORY DATA: Her initial admission had a hemoglobin of 5.6. She was transfused hemoglobin 9.8 now. Chemistries initially creatinine 1.9, which has remained the same. She is hypokalemic this morning with a potassium 2.7, bicarbonate 33 that has been replaced. She has been worked up for abdominal cancer with carcinoembryonic antigen and CA-19-9, both of them are pending. Her total protein is of 5.5. Her globulins are 2.5. Her albumin is 2.5. Her calcium level is 7.9. Her urinalysis shows specific gravity of 1.010, pH 6 with rbc none, wbc 6 to 10. She has had recent right-sided thoracentesis. Her initial CT chest, which was done without contrast shows large hiatus hernia, cholelithiasis, scattered bilateral pulmonary nodules; bilateral pleural effusion, right larger than left. Abdominal CT pelvis shows bilateral kidney atrophy, no stones or hydronephrosis, however, had about the same findings as final CT scan of the chest. ALLERGIES: NO APPARENT DRUG ALLERGIES. CURRENT MEDICATIONS: 1. The patient is on potassium chloride 20 mEq daily. 2. She is on hydralazine 25 mg p.o. t.i.d. 3. Levothyroxine 75 mcg daily. 4. Metoprolol 25 mg p.o. b.i.d. 5. She is on Remeron 30 mg at bedtime. 6. Pantoprazole 40 mg p.o. b.i.d. 7. Hydralazine 25 mg p.o. t.i.d. 8. Furosemide 20 mg IV daily. 9. Received potassium riders early this morning as well as ascorbic acid. PHYSICAL EXAMINATION: GENERAL: The patient is awake, alert, oriented x3; lying supine in bed. No apparent distress. VITAL SIGNS: Blood pressure 125/62, pulse rate 68, afebrile, oxygen saturation 92% on room air. HEAD AND NECK: Cornea clear. Oral mucosa dry. Neck veins flat. Significant bitemporal wasting and sunken eyes. LUNGS: Decreased air entry, left lower 3rd. Right lung appear relatively clear. Left upper lobes, fairly clear. HEART: S1, S2 audible. ABDOMEN: Soft, nontender. EXTREMITIES: Lower extremity examination shows no edema. IMPRESSION AND PLAN: Hypokalemia, ubkes-lk-fkmalin kidney failure, prior history of kidney insufficiency. PLAN: On obtaining kidney ultrasound to gauge kidney size, discontinue IV Lasix. Replace potassium. Malignancy workup underway. Please see orders. MD BRYN Berger/SOHEILA /[id number]
[2019-06-12] VITALS (8 sets, daily range): BP systolic 107–164; BP diastolic 55–88
[2019-06-12] MEDS: IPRATROPIUM BROMIDE 0.02% 2.5 ML NEB NEB SCH ×4 (00:55→20:15)
[2019-06-12] MEDS: LEVOTHYROXINE SODIUM 75 MCG TAB PO SCH (05:38)
[2019-06-12 05:45] LABS: BASOPHILS % 0.5 % (0.0-1.0); EOSINOPHILS # (AUTO) 0.2 (0.0-0.4); EOSINOPHILS % 3.1 % (0.0-6.0); HEMATOCRIT 32.7 % (34.2-44.1); HEMOGLOBIN 9.7 g/dL (12.0-16.0); LYMPHOCYTES % 15.8 % (18.0-39.1); MEAN CORPUSCULAR HEMOGLOBIN 26.1 pg (28-32); MEAN CORPUSCULAR HGB CONC 29.7 g/dL (31-35); MEAN CORPUSCULAR VOLUME 87.9 fL (81-99); MONOCYTES # (AUTO) 0.5 (0.2-0.8); MONOCYTES % 8.7 % (4.4-11.3); NEUTROPHILS # (AUTO) 4.3 (2.1-6.9); NEUTROPHILS % 71.4 % (38.7-80.0); PLATELET COUNT 322 x10e3/uL (140-360); RED BLOOD COUNT 3.72 x10e6/uL (3.6-5.1); RED CELL DISTRIBUTION WIDTH 17.9 % (11.7-14.4)
[2019-06-12] MEDS ORDERED: LEVOTHYROXINE SODIUM 50 MCG TAB PO SCH (06:00)
[2019-06-12 06:05] LABS: ALBUMIN 2.2 g/dL (3.5-5.0); ANION GAP 11.7 mmol/L (8-16); CALCIUM 7.8 mg/dL (8.4-10.2); CREATININE, SERUM 1.7 mg/dL (0.57-1.11); MAGNESIUM 1.9 MG/DL (1.3-2.1); PHOSPHORUS 2.2 MG/DL (2.3-4.7); POTASSIUM 3.7 mmol/L (3.5-5.1)
[2019-06-12 06:27] LABS: FREE T4 (FREE THYROXINE) 0.67 ng/dL (0.8-1.8)
--- NOTE | 2019-06-12 07:13 | NUR ---
Patient lying in bed with eyes closed. Respiration even and unlabored without SOB. Call light within reach.
[2019-06-12] MEDS: BUDESONIDE/FORMOTEROL 160/4.5MCG INHALER INH SCH ×2 (07:47→20:15)
[2019-06-12] MEDS ORDERED: FUROSEMIDE INJ 10 MG/ML 4 ML VIAL IV SCH (09:00)
[2019-06-12] MEDS: ASCORBIC ACID 500 MG TAB PO SCH (09:40)
[2019-06-12] MEDS: PANTOPRAZOLE SOD 40 MG TABEC PO SCH ×2 (09:40→16:47)
[2019-06-12] MEDS: POLYETHYLENE GLYCOL 3350 17 GM PACK PO SCH (09:40)
[2019-06-12] MEDS: FERROUS SULFATE 325 MG TAB PO SCH ×2 (09:40→16:44)
[2019-06-12] MEDS: POTASSIUM CHLORIDE 10MEQ EA PO SCH (09:40)
[2019-06-12] MEDS: HYDRALAZINE HCL 25 MG TAB PO SCH ×3 (09:40→20:32)
[2019-06-12] MEDS: FOLIC ACID 1 MG TAB PO SCH (09:40)
[2019-06-12] MEDS: METOPROLOL TARTRATE 25 MG TAB PO SCH ×2 (09:40→16:44)
--- NOTE | 2019-06-12 12:24 | Progress Note ---
DATE: 06/12/2019 Cardiology Progress Note SUBJECTIVE: No complaints. OBJECTIVE: VITAL SIGNS: Temperature 97.6, heart rate 87, respiratory rate 16, blood pressure 125/83, O2 saturation 94% on nasal cannula. GENERAL: No acute distress. Alert. NECK: No JVD. CHEST: Clear to auscultation. CARDIOVASCULAR: Irregularly irregular rate and rhythm. Normal S1 and S2. ABDOMEN: Soft, nontender. EXTREMITIES: No edema. CARDIOVASCULAR MEDICATIONS: Reviewed. 1. Ferrous sulfate 325 mg b.i.d. 2. Metoprolol tartrate 25 mg b.i.d. 3. Diuretic on hold. STUDIES: White blood cell 6.08, hemoglobin 9.7, stable, platelets 322. INR 1.1. Sodium 141, potassium 3.7, chloride 101, bicarbonate 32, BUN 32, creatinine 1.7, glucose 75, calcium 7.8, magnesium 1.9. Phosphorus 2.2. AST 13, ALT 8, total bilirubin 0.9, alkaline phosphatase 54, total protein 4.3, albumin 2.2. TSH elevated at 27 and free T4 decreased at 0.67. ASSESSMENT: 1. Qwlql-qf-whrwnnh renal failure. 2. Gastrointestinal bleed. 3. Paroxysmal atrial fibrillation. 4. Orwgc-ea-pnyxyjy systolic heart failure. 5. Cachexia. 6. Hypertension. 7. Pulmonary nodules. 8. Hypothyroidism. RECOMMENDATION: 1. Discussed with Hematology. If okay with GI, consider vitamin K antagonist, warfarin for target INR 2-3 upon discharge with close monitoring. As the risk for thromboembolic event for the patient is elevated and there seems to be no active bleed. However, warfarin can be reversed as needed and transfusions can be considered if recurrent issues with anemia. 2. Continue beta-dale. 3. Continue rest of cardiovascular medications. 4. Defer diuretics to discretion of business services representative. We will consider a p.r.n. use for now. Fernando Vazquez MD AFIsaac/MODL /[id number]
[2019-06-12] MEDS: LEVALBUTEROL HCL SOLN NEBU 0.63 MG/3 ML NEB INH PRN ×2 (14:30→20:15)
--- NOTE | 2019-06-12 19:00 | NUR ---
Walking rounds and report received. POC discussed. Patient instructed to call for assistance as needed and verbalized understanding. No complaints voiced at this time. Bed in lowest position, locked, bed alarm on and call bunn within reach.
[2019-06-12] MEDS: MIRTAZAPINE 15 MG TAB PO SCH (20:33)
[2019-06-13] VITALS (8 sets, daily range): BP systolic 102–158; BP diastolic 53–90
--- NOTE | 2019-06-13 | NUR ---
Patient resting quietly in bed in NAD. Call bunn within reach.
[2019-06-13] MEDS: LEVALBUTEROL HCL SOLN NEBU 0.63 MG/3 ML NEB INH PRN ×2 (01:30→19:30)
[2019-06-13] MEDS: IPRATROPIUM BROMIDE 0.02% 2.5 ML NEB NEB SCH ×4 (01:30→19:30)
[2019-06-13] MEDS: LEVOTHYROXINE SODIUM 75 MCG TAB PO SCH (05:20)
[2019-06-13] MEDS: BUDESONIDE/FORMOTEROL 160/4.5MCG INHALER INH SCH ×2 (06:34→19:30)
--- NOTE | 2019-06-13 07:19 | NUR ---
RECEIVED PATIENT AWAKE RESTING IN BED NO SIGNS OF DISTRESS. BED LOW, WHEELS LOCKED, SIDE RAILS X2. CALL LIGHT IN REACH WILL CONTINUE TO MONITOR PATIENT.
[2019-06-13] MEDS: FOLIC ACID 1 MG TAB PO SCH (08:16)
[2019-06-13] MEDS: APIXAB 2.5 MG TABLET PO SCH (08:16)
[2019-06-13] MEDS: HYDRALAZINE HCL 25 MG TAB PO SCH ×3 (08:16→21:00)
[2019-06-13] MEDS: FERROUS SULFATE 325 MG TAB PO SCH ×2 (08:16→17:15)
[2019-06-13] MEDS: METOPROLOL TARTRATE 25 MG TAB PO SCH ×2 (08:17→16:42)
[2019-06-13] MEDS: PANTOPRAZOLE SOD 40 MG TABEC PO SCH ×2 (08:17→17:15)
[2019-06-13] MEDS: POLYETHYLENE GLYCOL 3350 17 GM PACK PO SCH (08:17)
[2019-06-13] MEDS: ASCORBIC ACID 500 MG TAB PO SCH (08:17)
[2019-06-13] MEDS: POTASSIUM CHLORIDE 10MEQ EA PO SCH (08:17)
--- NOTE | 2019-06-13 10:00 | NUR ---
PATIENT A/O X3, EVEN RESPIRATIONS ON RA. BOWEL SOUNDS PRESENT, SKIN INTACT, NO EDEMA. LEFT FA 20 GAUGE IV SL. PATIENT AMBULATES WITH WALKER AND ASSISTANCE. NO PAIN OR DISCOMFORT AT THIS TIME. CALL LIGHT IN REACH WILL CONTINUE TO MONITOR PATIENT.
--- NOTE | 2019-06-13 10:55 | Progress Note ---
DATE: 06/13/2019 Cardiology Progress Note SUBJECTIVE: The patient denies any chest discomfort or shortness of breath today. Denies any gross bleeding. OBJECTIVE: VITAL SIGNS: Temperature 97.1, heart rate 69, blood pressure 158/76, respiratory rate 18 and O2 saturation 93%, BMI 17.5. GENERAL: In no acute distress, alert. NECK: No JVD. CHEST: Clear to auscultation. CARDIOVASCULAR: Irregularly irregular rate and rhythm, normal S1, S2. ABDOMEN: Soft and nontender. EXTREMITIES: No edema. LABORATORY STUDIES: Have been reviewed. Sodium 141, potassium 3.7, chloride 101, bicarbonate 32, BUN 32, creatinine 1.7. White blood cells 6.08, hemoglobin 9.7, platelets 3.2. INR 1.1, PT 15.2, PTT 31.8. AST 13, ALT 8, alkaline phosphatase 54, total bilirubin 0.9. ASSESSMENT: An 78-year-old woman, presents with GI bleeding in the setting of Xarelto use. 1. Anemia, blood loss, now status post transfusion with no gross bleeding noted. 2. Hypothyroidism. 3. Hypertension. 4. Paroxysmal atrial fibrillation. 5. Cachexia. 6. Suspected underlying malignancy. 7. Chronic kidney disease. RECOMMENDATION: I discussed at length with Hematology, favor attempt at anticoagulation with monitoring closely for recurrent bleeding, particularly given the patient is no longer at risk for thromboembolic risk and lack of current active bleeding. Eliquis versus vitamin K antagonist has been discussed, although Eliquis does not have reversal agent, the patient is aware of this. She does want to leave today if possible and therefore it may be safer to discharge on 2.5 mg of Eliquis twice a day with close monitoring for recurrent bleeding. Transition to vitamin K antagonist for target INR 2-3, can be considered as outpatient. The patient is like to followup with Hematology for this. Continue current cardiovascular medications. MD ABDIRASHID Corrigan/SOHEILA /[id number]
--- NOTE | 2019-06-13 14:57 | NUR ---
Nutrition Intervention Note RD Recommendation(s) for Physician: -Continue diet as ordered -Rec Ensure Enlive BID to increase protein-calorie intake Plan of Care: RD following, monitoring for tolerance and adequacy, ONS rec Nutrition reason for involvement: Follow up RD Assessment: (06/13) Visited pt in the room. Pt reported fair appetite with 40% observed lunch intake. No GI complains reported. Pt wears denture and able to tolerate current diet texture. Will continue to monitor and follow. (06/09) Initial encounter with patient. Nutrition Dx: pt has no known food allergies. Physical activity and function: Pt has not been walking. Pt is able to feed herself. Nutrition- focused physical findings: Pt with missing teeth and she wears dentures. States that her son will bring them. Loss of lean bosy mass, loss of subcutaneous fat, hollow orbitals, temporal wasting, prominent ribs, acromion process, clavicle, scapula, reports poor appetite and involuntary wt loss for several months, Pt states she drinks commercial beverages and prefers strawberry flavor. Pt is eating well for lunch. Principal Problems/Diagnoses: AC Severe Anemia, GI Bleed, bilateral pleural effusions/thoracentesis, PMH: HTN, atrial fibrillation, CKD, COPD GI: soft, flat, non tender Skin: intact skin Labs: (06/13/2019) BUN 32 H, Creatinine 1.7 H, Ca 7.8 L, Phos 2.2 L (06/09/2019) biochemical data reviewed Meds: K dur, miralax, vitamin C, protonix, eliquis, feosol, folic acid, synthroid Ht: 62in. Wt: 94.02lbs; 96.01lb BMI:17.2kg/M2 IBW:110lbs Malnutrition evaluation (06/09/2019) The patient meets criteria for unspecified SEVERE protein-calorie malnutrition. Energy intake: <75% of estimated energy requirements for >3 months Weight loss: >10% in 6 months (Chronic) Fat loss: Severe Muscle loss: Severe Supporting Evidence: Fluid accumulation: Moderate Functional Status: measurably reduced Nutrition Prescription (Diet Order): Cardiac diet Estimated Nutritional Needs: 1068 - 1281calories/day (25-30 kcal/kg/BW) 42-85g protein/day ( 1-2g pro/kg/ BW) Diet Adequacy: Not meeting calorie needs, Not meeting protein needs Diet Education Needs Assessment: Diet education not indicated. Nutrition Care Level: Mod Nutrition Diagnosis: Malnutrition related to chronic illness as evidenced by loss of lean by mass and subcutaneous fat Goal: Patient will meet 75-100% of estimated needs by follow up Progress: Progressing Interventions: Modified diet, Commercial beverage Monitoring/Evaluation: Total energy intake, Total protein intake, Modified diet, Liquid supplement, Weight Signed: Lavonne Borden MS, RD, LD
[2019-06-13] MEDS ORDERED: WARFARIN SOD 5 MG TAB PO SCH (17:00)
[2019-06-13] MEDS: MIRTAZAPINE 15 MG TAB PO SCH (21:00)
--- NOTE | 2019-06-13 21:00 | NUR ---
Patient is awake, alert, declined sleeping pill stated she did not need it tonight. Bed in lowest position, locked, bed alarm on and call bunn within reach.
[2019-06-14] VITALS: BP 138/60
[2019-06-14] MEDS: IPRATROPIUM BROMIDE 0.02% 2.5 ML NEB NEB SCH ×2 (00:15→07:33)
[2019-06-14] MEDS: LEVALBUTEROL HCL SOLN NEBU 0.63 MG/3 ML NEB INH PRN (00:15)
[2019-06-14 04:00] VITALS: BP 110/61
[2019-06-14] MEDS: LEVOTHYROXINE SODIUM 75 MCG TAB PO SCH (05:39)
[2019-06-14 05:41] LABS: BASOPHILS % 0.3 % (0.0-1.0); EOSINOPHILS # (AUTO) 0.1 (0.0-0.4); EOSINOPHILS % 2.1 % (0.0-6.0); HEMATOCRIT 31.5 % (34.2-44.1); HEMOGLOBIN 9.1 g/dL (12.0-16.0); LYMPHOCYTES % 15.7 % (18.0-39.1); MEAN CORPUSCULAR HEMOGLOBIN 26.1 pg (28-32); MEAN CORPUSCULAR HGB CONC 28.9 g/dL (31-35); MEAN CORPUSCULAR VOLUME 90.3 fL (81-99); MONOCYTES # (AUTO) 0.4 (0.2-0.8); MONOCYTES % 6.8 % (4.4-11.3); NEUTROPHILS # (AUTO) 4.6 (2.1-6.9); NEUTROPHILS % 74.8 % (38.7-80.0); PLATELET COUNT 278 x10e3/uL (140-360); RED BLOOD COUNT 3.49 x10e6/uL (3.6-5.1)
[2019-06-14 06:01] LABS: ALBUMIN 2.1 g/dL (3.5-5.0); ANION GAP 8.1 mmol/L (8-16); CALCIUM 8.2 mg/dL (8.4-10.2); CREATININE, SERUM 1.54 mg/dL (0.57-1.11); POTASSIUM 4.1 mmol/L (3.5-5.1)
[2019-06-14 06:54] LABS: EOSINOPHILS % (MANUAL) 2 % (0-7); HYPOCHROMASIA SLIGHT; LYMPHOCYTES % (MANUAL) 17 % (19-48); MONOCYTES % (MANUAL) 5 % (3.4-9.0); NEUTROPHILS % (MANUAL) 76 % (40-74); PLATELET ESTIMATE ADEQUATE; RBC MORPHOLOGY COMMENT NORMAL
--- NOTE | 2019-06-14 07:15 | NUR ---
RECEIVED PATIENT ASLEEP IN BED NO S/S OF DISTRESS. BED LOW, WHEELS LOCKED, SIDE RAILS X2. CALL LIGHT IN REACH WILL CONTINUE TO MONITOR PATIENT.
[2019-06-14 08:11] VITALS: BP 142/74
[2019-06-14] MEDS: POTASSIUM CHLORIDE 10MEQ EA PO SCH (09:00)
[2019-06-14] MEDS: FERROUS SULFATE 325 MG TAB PO SCH (09:27)
[2019-06-14] MEDS: FOLIC ACID 1 MG TAB PO SCH (09:27)
[2019-06-14] MEDS: APIXAB 2.5 MG TABLET PO SCH (09:27)
[2019-06-14] MEDS: HYDRALAZINE HCL 25 MG TAB PO SCH (09:27)
[2019-06-14] MEDS: ASCORBIC ACID 500 MG TAB PO SCH (09:28)
[2019-06-14] MEDS: PANTOPRAZOLE SOD 40 MG TABEC PO SCH (09:28)
[2019-06-14] MEDS: POLYETHYLENE GLYCOL 3350 17 GM PACK PO SCH (09:28)
[2019-06-14] MEDS: METOPROLOL TARTRATE 25 MG TAB PO SCH (09:28)
[2019-06-14 09:29] VITALS: BP 142/74
[2019-06-14] MEDS ORDERED: ELIQUIS PO (09:46)
[2019-06-14] MEDS ORDERED: LEVOTHYROXINE75 MCG PO (09:47)
[2019-06-14] MEDS ORDERED: ASCORBIC ACID500 M2 PO (09:51)
[2019-06-14] MEDS: BUDESONIDE/FORMOTEROL 160/4.5MCG INHALER INH SCH (09:53)
[2019-06-14 11:39] VITALS: BP 103/51
--- NOTE | 2019-06-14 14:10 | NUR ---
REMOVED PATIENTS IV. CATHETER TIP INTACT AND PRESSURE DRESSING APPLIED.
--- NOTE | 2019-06-14 14:37 | NUR ---
PATIENT DISCHARGED FROM FACILITY. PATIENT GATHERED ALL PERSONAL BELONGINGS, DISCHARGE INSTRUCTIONS, AND FOLLOW UP INFORMATION. LEFT UNIT IN WHEELCHAIR AND WENT HOME VIA [facility]AXI. NO SIGNS OF DISTRESS WHEN LEAVING FACILITY.
--- NOTE | 2019-06-15 17:44 | Discharge Summary ---
CONSULTATIONS BY: 1. Dr. Haider, Gastroenterology. 2. Dr. Valladares, welfare worker. 3. Dr. Torres, rug setter [place]. 4. Dr. Barboza, Hematology/Oncology. 5. Dr. Lauryn Fatima, final finisher. FINAL DIAGNOSIS: Critical anemia, status post PRBC transfusion. OTHER DIAGNOSES: 1. Bilateral transudative pleural effusion, left more than right, status post thoracentesis during this hospitalization. 2. Paroxysmal atrial fibrillation, was on Xarelto discontinued. Started on Eliquis at discharge 2.5 mg daily. 3. Bilateral pulmonary nodules, suspicious for malignancy. 4. Abnormal weight loss with cachexia. 5. Hypertension. 6. Hypothyroidism. 7. Acute kidney injury on chronic kidney disease, improved. BRIEF HOSPITAL COURSE: An 78-year-old female was admitted from ER. The patient was admitted from the office of Dr. Mulugeta Duran, her PCP. The patient had shortness of breath at presentation. She was found having bilateral pleural effusion. She also had critical anemia of 5.6 at presentation. The patient was given packed RBC transfusion. She was evaluated by rug setter [place], welfare worker, Hematology/Oncology, and final finisher. The patient was on Xarelto for paroxysmal atrial fibrillation. Xarelto was kept on hold. Gastroenterology, Dr. Haider, who is familiar, the patient was consulted. He did not recommend any need for endoscopic evaluation at this time because the patient had a recent EGD and colonoscopy as outpatient. The patient's chest CT has bilateral pulmonary nodules suspicious for malignancy. Dr. Barboza, Hematology/Oncology recommended no need to biopsy at this time because of the patient's poor general condition. She had an ultrasound-guided thoracentesis. The pleural fluid was transudative on analysis. Dr. Timur Valladares, welfare worker evaluated the patient. The patient had high risk for stroke from atrial fibrillation. Considering her risk upon discussion with the patient, Cardiology, Dr. Torres recommended starting the patient on Eliquis 2.[address] Barboza, Hematology/oncologist also agreed with this plan. The patient declined [facility] facility evaluation. She had a PT/OT evaluation. She was taking food orally. She was hemodynamically stable. For her worsening renal function, Dr. Fatima, final finisher, was consulted. Her renal ultrasound was suggestive of chronic medical renal disease without any evidence of hydronephrosis or nephrolithiasis. The patient was discharged home with instruction to follow up with specialist and her PCP, Dr. Mulugeta Duran. She was also started on levothyroxine. Her TSH was above 25. The patient was advised to repeat TSH in 4 to 6 weeks as outpatient. PHYSICAL EXAMINATION: VITAL SIGNS: BP 103/51, pulse 86, temperature 96.5, respiration 18, and SpO2 93% at room air. GENERAL: Alert, not in acute distress and cachectic patient. HEENT: NC/AT. No pallor. No icterus. Oral mucosa moist. NECK: No JVD. No carotid bruit. No lymphadenopathy. No thyromegaly. HEART: S1 and S2. Regular. No murmur. LUNGS: Air entry equal on both sides. No crackles. No rhonchi. ABDOMEN: Soft and nontender. No palpable mass. Bowel sounds active in all quadrants. EXTREMITIES: No edema or cyanosis. NEUROLOGICAL: Motor grossly equal on both sides. Generalized muscle wasting. LABORATORY DATA: CBC; WBC 6.19, hemoglobin 9.1, hematocrit 31.5, platelets 278, MCV 90, RDW 20, neutrophils 74, and lymphocytes 15. PT 15.2 and INR 1.14. Arterial blood gas; pH 7.40, pCO2 44, pO2 120, bicarb 27, O2 saturation 99% at 20% oxygen via nasal cannula. Chemistry panel; sodium 144, potassium 4.1, chloride 107, CO2 33, anion gap 4, glucose 92, BUN 32, and creatinine 1.54. Calcium 8.2, phosphorus 2.2, and magnesium 1.9. Iron 29, TIBC 434, and ferritin 18. Vitamin B12 394. TSH 27.23 and free T4 0.67. Homocysteine 11.3. Prealbumin 14. Total bilirubin 0.5, AST 15, ALT 12, and alkaline phosphatase 48. Total protein 4.3, albumin 2.1, and globulin 2.2. CEA 8.2, CA 19-9 38. Urinalysis at presentation, negative for protein, glucose, ketone, leukocyte esterase, wbc 6-10, rbc 0. Alcohol level less than 10 at presentation. Pleural fluid study; WBC 45, RBC 15, neutrophils 21%, lymphocytes 41%, glucose 109, total protein 1.3, and LDH 45. Thyroid peroxidase antibody 5. MICROBIOLOGICAL DATA: Pleural fluid culture, no growth after 3 days. RADIOLOGICAL DATA: X-ray chest at presentation, moderate to large left pleural effusion. Cardiac borders are obscured. Right lung is grossly clear. No pneumothorax. No acute osseous abnormality. Chest ultrasound, bilateral pleural effusion large on the left. CT abdomen and pelvis without contrast, large right and small left pleural effusion with associated patchy opacities, likely atelectasis, superimposed pneumonia is possible. Distended stool and contrast filled the rectum with perirectal stranding. Large hiatal hernia. Cholelithiasis without cholecystitis. Scattered bilateral pulmonary nodules measuring up to [address] chest without contrast, large right and small left pleural effusion with associated patchy opacities likely atelectatic, superimposed pneumonia is possible. Renal ultrasound, increased renal echotexture consistent with medical renal disease. Sonographically normal bladder. Left pleural effusion. No renal calculi. No evidence of obstruction in collecting system. HIDA scan, filling of the gallbladder excluded acute cystic duct obstruction. Decreased gallbladder ejection fraction of 39% support clinical diagnosis of chronic cholecystitis versus gallbladder dyskinesia. Repeat chest x-ray on 06/11/2019, cardiac shadow enlarged, left retrocardiac opacities present. Right lung is clear. No evidence of pneumothorax. No active osseous or soft-tissue abnormalities. MEDICATION AT DISCHARGE: Please refer to the med reconciliation sheet. The patient was prescribed levothyroxine 75 mcg and Eliquis 2.5 mg daily along with other regular medication. ACTIVITY: As tolerated. Fall precaution advised given. DIET: Heart healthy diet. INSTRUCTION AT DISCHARGE: Continue medication as per discharge recommendation. Follow up with rug setter [place], welfare worker, poly packer and heat sealer, Hematology/Oncology as available. Follow up with PCP, Dr. Mulugeta Duran in 1 week. Repeat CBC and CMP in 5 days. Repeat TSH in 4 to 6 weeks. MD ANN MARIE Mckeon/MODL /[id number]
--- NOTE | 2019-07-04 02:44 | Pulmonary Function Test ---
DATE OF STUDY: 06/12/2019 REFERRING PHYSICIAN: NAME OF STUDY: Spirometry report. Patient of Dr. Maude Duran. FINDINGS: Effort was suboptimal. Pattern is one of the severe obstructive pulmonary disease. Concomitant restriction cannot be excluded. Forced vital capacity 0.89 L, 38% of predicted. FEV1 of 0.56 L, 32%. FEV1/FVC ratio 63%. FEF 25-75 is 24%. There is no significant improvement following inhalation of bronchodilators. MD DAVID Montalvo/MODL /[id number]
== END 2019-06-14 14:37 | disposition home or self-care (01) | DRG 377 ==
LOC: MED/SURG 13:13 → OBSVTOIN 13:13
PROVIDERS: ADMIT Internal Medicine; ATTEND Internal Medicine
PROC: 30233N1 Transfusion of Nonautologous Red Blood Cells into Peripheral Vein, Percutaneous Approach (ICD-10-PCS; principal; 2019-06-09)
PROC: 0W9B3ZX Drainage of Left Pleural Cavity, Percutaneous Approach, Diagnostic (ICD-10-PCS; 2019-06-09)
PROC: 0W993ZZ Drainage of Right Pleural Cavity, Percutaneous Approach (ICD-10-PCS; 2019-06-11)
DX: K92.2 Gastrointestinal hemorrhage, unspecified (principal); I50.23 Acute on chronic systolic (congestive) heart failure; E43 Unspecified severe protein-calorie malnutrition; D62 Acute posthemorrhagic anemia; R64 Cachexia; N17.9 Acute kidney failure, unspecified; J90 Pleural effusion, not elsewhere classified; I13.0 Hypertensive heart and chronic kidney disease with heart failure and stage 1 through stage 4 chronic kidney disease, or unspecified chronic kidney disease; Z68.1 Body mass index [BMI] 19.9 or less, adult; T45.515A Adverse effect of anticoagulants, initial encounter; I48.0 Paroxysmal atrial fibrillation; Z79.01 Long term (current) use of anticoagulants; I11.0 Hypertensive heart disease with heart failure; J44.9 Chronic obstructive pulmonary disease, unspecified; E78.5 Hyperlipidemia, unspecified; Z80.3 Family history of malignant neoplasm of breast; Z80.1 Family history of malignant neoplasm of trachea, bronchus and lung; Z82.49 Family history of ischemic heart disease and other diseases of the circulatory system; F17.210 Nicotine dependence, cigarettes, uncomplicated; Z86.010 Personal history of colon polyps; R62.7 Adult failure to thrive; R91.8 Other nonspecific abnormal finding of lung field; E03.9 Hypothyroidism, unspecified; E87.6 Hypokalemia; I49.3 Ventricular premature depolarization; N18.3 Chronic kidney disease, stage 3 (moderate)
CPT/HCPCS: 32555; 36415; 36600; 71045; 71250; 74176; 74470; 76604; 76770; 78227; 80048; 80053; 80320; 81001; 82378; 82607; 82728; 82805; 82945; 83090; 83540; 83615; 83735; 83921; 84100; 84134; 84157; 84436; 84439; 84443; 84466; 84479; 85025; 85610; 85651; 85730; 86301; 86376; 86850; 86900; 86920; 87071; 87205; 88112; 88305; 89051; 93005; 93306; 94060; 94640; 94660; 94664; 96367; 97139; A9537; J1100; J1200; J1750; J1940; J3430; J3480; J7040; J7050; P9016